=== PATIENT | male | born 1935 | race Asian ===

== ENCOUNTER 2018-01-22 10:34 | Inpatient (IN) | payer MEDICARE, OTHER ==
[~2018-01-22] VITALS: Ht 170.2 cm; Wt 72.8 kg
--- NOTE | 2018-01-22 10:37 | Emergency Room Report ---
History of Present Illness General Source: Family Member, EMS Present Illness HPI Patient is a 82-year-old male who presented after increased altered mental status. The patient was noted to have had a syncopal episode The patient was noted to have prior history dementia as well as diabetes. He was noted to have a blood sugar of 109 by EMS. The patient is brought in for further evaluation. Patient noted to have been incontinent of urine and stool.Syncopal episode occurred 1 day prior to arrival. Allergies: Coded Allergies: No Known Allergies (Unverified , 01/22/18) Patient History Past Medical History: see triage record, dementia Reviewed Nursing Documentation: PMH: Agreed; PSxH: Agreed Review of Systems All Other Systems: limited - poor historian Physical Exam General Appearance: alert, other - GCS 14, Chronically Ill Eyes: bilateral eye PERRL ENT: dry mucus membranes Neck: limited range of motion Respiratory: chest non-tender, lungs clear, normal breath sounds, no rhonchi, no retraction Cardiovascular #1: normal inspection, normal peripheral pulses, regular rate, rhythm, no edema Gastrointestinal: normal inspection, normal bowel sounds, non tender, soft, no mass Musculoskeletal: normal inspection, back normal, digits/nails normal Neurologic: alert, 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 Differential diagnosis included but was not limited to ischemic stroke, subarachnoid hemorrhage, hypoglycemia, spinal cord injury, neurodegenerative disorder, urinary tract infection, hypoxemia.Because of complexity of patient's case laboratory testing and imaging studies were ordered.Laboratory studies were notable for evidence of urinary tract infection. The patient started on IV antibiotics. The patient was given antiemetic medications. The CPK was noted to be elevated consistent with rhabdomyolysis. The patient was started on IV fluids. Dr. Lopes TRACTOR CRANE ENGINEER was contacted for inpatient management. Labs Test 01/22/18 10:56 01/22/18 11:00 White Blood Count 9.7 K/UL (4.8-10.8) Red Blood Count 4.57 M/UL (4.70-6.10) Hemoglobin 14.3 G/DL (14.2-18.0) Hematocrit 41.8 % (42.0-52.0) Mean Corpuscular Volume 91 FL (80-99) Mean Corpuscular Hemoglobin 31.3 PG (27.0-31.0) Mean Corpuscular Hemoglobin Concent 34.2 G/DL (32.0-36.0) Red Cell Distribution Width 11.5 % (11.6-14.8) Platelet Count 146 K/UL (150-450) Mean Platelet Volume 6.9 FL (6.5-10.1) Neutrophils (%) (Auto) 79.2 % (45.0-75.0) Lymphocytes (%) (Auto) 9.2 % (20.0-45.0) Monocytes (%) (Auto) 10.3 % (1.0-10.0) Eosinophils (%) (Auto) 0.3 % (0.0-3.0) Basophils (%) (Auto) 1.0 % (0.0-2.0) Prothrombin Time 10.7 SEC (9.30-11.50) Prothromb Time International Ratio 1.0 (0.9-1.1) Activated Partial Thromboplast Time 29 SEC (23-33) Sodium Level 134 MMOL/L (136-145) Potassium Level 4.0 MMOL/L (3.5-5.1) Chloride Level 101 MMOL/L (98-107) Carbon Dioxide Level 23 MMOL/L (21-32) Anion Gap 10 mmol/L (5-15) Blood Urea Nitrogen 21 mg/dL (7-18) Creatinine 1.1 MG/DL (0.55-1.30) Estimat Glomerular Filtration Rate mL/min (>60) Glucose Level 92 MG/DL (74-106) Lactic Acid Level 1.10 mmol/L (0.4-2.0) Calcium Level 9.2 MG/DL (8.5-10.1) Phosphorus Level 3.0 MG/DL (2.5-4.9) Magnesium Level 2.0 MG/DL (1.8-2.4) Total Bilirubin 1.6 MG/DL (0.2-1.0) Direct Bilirubin 0.4 MG/DL (0.0-0.3) Aspartate Amino Transf (AST/SGOT) 90 U/L (15-37) Alanine Aminotransferase (ALT/SGPT) 32 U/L (12-78) Alkaline Phosphatase 56 U/L (46-116) Total Creatine Kinase 1850 U/L (26-308) Creatine Kinase MB 17.8 NG/ML (0.0-3.6) Creatine Kinase MB Relative Index 0.9 Troponin I 0.118 ng/mL (0.000-0.056) Total Protein 8.1 G/DL (6.4-8.2) Albumin 3.4 G/DL (3.4-5.0) Globulin 4.7 g/dL Albumin/Globulin Ratio 0.7 (1.0-2.7) Lipase 71 U/L (73-393) Urine Color Yellow Urine Appearance Clear Urine pH 6 (4.5-8.0) Urine Specific [place] 1.015 (1.005-1.035) Urine Protein 2+ (NEGATIVE) Urine Glucose (UA) Negative (NEGATIVE) Urine Ketones 2+ (NEGATIVE) Urine Occult Blood 4+ (NEGATIVE) Urine Nitrite Positive (NEGATIVE) Urine Bilirubin Negative (NEGATIVE) Urine Urobilinogen 4 MG/DL (0.0-1.0) Urine Leukocyte Esterase 3+ (NEGATIVE) Urine RBC 2-4 /HPF (0 - 0) Urine WBC 30-40 /HPF (0 - 0) Urine Squamous Epithelial Cells Occasional /LPF Urine Bacteria Moderate /HPF (NONE) EKG Diagnostic Results Rate: normal Rhythm: NSR ST Segments: no acute changes Rhythm Strip Diag. Results EP Interpretation: yes Rhythm: NSR, no PVC's, no ectopy Chest X-Ray Diagnostic Results Chest X-Ray Diagnostic Results : Chest X-Ray Ordered: Yes # of Views/Limited/Complete: 1 View Indication: Shortness of Breath EP Interpretation: Yes Impression: No acute disease Electronically Signed by: Electronically signed by Dr. Brian Durand M.D. Status: unchanged Disposition: ADMITTED INPATIENT Condition: Serious Scripts Cyanocobalamin (Vitamin B-12) (Vitamin B12) 5,000 Mcg Tab.rapdis 5000 MCG PO DAILY for 30 Days, #30 TAB Prov: Ana Maria Man NP 01/25/18 Spironolactone (ALDACTONE) 25 Mg Tablet 25 MG ORAL DAILY for 30 Days, #30 TAB Prov: Ana Maria Man TRACTOR CRANE ENGINEER 18 Magnesium Hydroxide (Milk of Magnesia) 400 Mg/5 Ml Oral.susp 30 ML ORAL HSPRN PRN for 30 Days, #120 ML Prov: Ana Maria Man TRACTOR CRANE ENGINEER 01/25/18 Lisinopril (LISINOPRIL*) 5 Mg Tablet 2.5 MG ORAL DAILY for 30 Days, #30 TAB Prov: Ana Maria Man NP 01/25/18 Folic Acid* (FOLIC ACID*) 1 Mg Tablet 1 MG ORAL DAILY for 30 Days, #30 TAB Prov: Ana Maria Man NP 01/25/18 Furosemide* (LASIX*) 40 Mg Tablet 40 MG ORAL DAILY for 30 Days, #30 TAB Prov: Ana Maria Man NP 01/25/18 Docusate Sodium* (COLACE*) 100 Mg Capsule 100 MG ORAL EVERY 12 HOURS for 30 Days, #60 CAP Prov: Ana Maria Man NP 01/25/18 Ciprofloxacin Hcl* (CIPROFLOXACIN HCL*) 500 Mg Tablet 500 MG ORAL EVERY 12 HOURS for 5 Days, #10 TAB Prov: Ana Maria Man NP 01/25/18 Carvedilol (Coreg) 3.125 Mg Tablet 3.125 MG ORAL EVERY 12 HOURS for 30 Days, #60 TAB Prov: Ana Maria Man TRACTOR CRANE ENGINEER 01/25/18 Aspirin Ec* (ASPIRIN EC*) 81 Mg Tablet. 81 MG ORAL DAILY for 30 Days, #30 TAB Prov: Ana Maria Man TRACTOR CRANE ENGINEER 01/25/18 Brian Durand MD Jan 22, 2018 10:37
[2018-01-22 11:02] VITALS: BP 136/85
[2018-01-22 11:15] LABS: APPEARANCE,URINE CLEAR; BILIRUBIN, URINE NEGATIVE (NEGATIVE); GLUCOSE, URINE (UA) NEGATIVE (NEGATIVE); KETONES,URINE 2+ (NEGATIVE); LEUKOCYTE ESTERASE ,URINE 3+ (NEGATIVE); NITRITE,URINE POSITIVE (NEGATIVE); PH,URINE 6 (4.5-8.0); PROTEIN,URINE 2+ (NEGATIVE); UROBILINOGEN,URINE 4 MG/DL (0.0-1.0)
[2018-01-22 11:17] LABS: EOSINOPHILS % (AUTO) 0.3 % (0.0-3.0); HEMATOCRIT 41.8 % (42.0-52.0); HEMOGLOBIN 14.3 G/DL (14.2-18.0); LYMPHOCYTES % (AUTO) 9.2 % (20.0-45.0); MEAN CORPUSCULAR VOLUME 91 FL (80-99); MONOCYTES % (AUTO) 10.3 % (1.0-10.0); NEUTROPHILS % (AUTO) 79.2 % (45.0-75.0); PLATELET COUNT 146 K/UL (150-450); RED BLOOD COUNT 4.57 M/UL (4.70-6.10); RED CELL DISTRIBUTION WIDTH 11.5 % (11.6-14.8); WHITE BLOOD COUNT 9.7 K/UL (4.8-10.8)
[2018-01-22 11:26] LABS: COLOR,URINE YELLOW
--- NOTE | 2018-01-22 11:26 | Diagnostic Imaging Report ---
INDICATION: Altered mental status TECHNIQUE: Multiple, contiguous 2.5 mm axial cuts of the brain are obtained from the posterior fossa to the cranial vault. Sagittal and coronal reformatted images provided. No IV contrast is administered. One or more of the following dose reduction techniques were used: automated exposure control, adjustment of the mA and/or kV according to patient size, use of iterative reconstruction technique. COMPARISON: None FINDINGS: No intracranial hemorrhage, abnormal intra- or extra-axial collections or parenchymal lesions are seen. There are involutional changes with prominence of the sulci, basal cisterns and ventricles. Scattered white matter hypoattenuations are present, likely from small vessel disease. The graham-white differentiation is preserved. No evidence of mass effect, midline shift, or edema. The osseous structures are unremarkable. The visualized portions of the paranasal sinuses are clear. Atherosclerotic vascular disease. Status post bilateral lens surgery. IMPRESSION: 1. No acute intracranial process. 2. Involutional changes with small vessel disease. CTDI: 70.38 mGy DLP: 1491.99 mGycm
[2018-01-22 11:28] LABS: ANION GAP 10 mmol/L (5-15); BLOOD UREA NITROGEN 21 mg/dL (7-18); CALCIUM 9.2 MG/DL (8.5-10.1); CARBON DIOXIDE 23 MMOL/L (21-32); CHLORIDE 101 MMOL/L (98-107); CREATININE 1.1 MG/DL (0.55-1.30); SODIUM 134 MMOL/L (136-145)
[2018-01-22 11:43] LABS: ALANINE AMINOTRANSFERASE 32 U/L (12-78); ALBUMIN 3.4 G/DL (3.4-5.0); ALBUMIN/GLOBULIN RATIO 0.7 (1.0-2.7); ALKALINE PHOSPHATASE 56 U/L (46-116); ASPARTATE AMINO TRANSFERASE 90 U/L (15-37); BILIRUBIN,TOTAL 1.6 MG/DL (0.2-1.0); CKMB 17.8 NG/ML (0.0-3.6); CREATINE KINASE 1850 U/L (26-308)
[2018-01-22 11:44] LABS: BILIRUBIN,DIRECT 0.4 MG/DL (0.0-0.3)
[2018-01-22] MEDS ORDERED: cefTRIAXone 1 GM in NS 55 ML IVPB ONE (11:45)
--- NOTE | 2018-01-22 11:49 | Diagnostic Imaging Report ---
INDICATION: Syncope COMPARISON: None FINDINGS: Single frontal view demonstrates an enlarged heart size. Atherosclerotic vascular disease. The lungs are clear. No pleural effusions. Old posterior inferior left rib fractures. The visualized osseous structures are within normal limits. IMPRESSION: Cardiomegaly. No pleural effusion.
[2018-01-22] MEDS ORDERED: UNOBMED (12:17)
[2018-01-22 13:46] VITALS: BP 134/87
--- NOTE | 2018-01-22 15:07 | History and Physical ---
History of Present Illness General Date patient seen: Jan 22, 2018 Time patient seen: 15:07 Reason for Hospitalization: Altered Level of Consciousness Present Illness HPI 82 y/o male with dementia, urinary/bowel incontinence presented to the ED for syncope and AMS. Patient is a difficult historian and further history was obtained from chart/family. Patient had a syncopal episode 1 day prior to arrival and today presented with altered mental status. CT brain was done, which was unremarkable for acute pathology but did show prominence of ventricles. Patient was also noted to have a UTI and was started on rocephin. Patient had been complaining of abdominal/back pain and CT a/p was done, which was significant for some fluid distended proximal small bowel loops measuring up to 3.5 cm diameter, query ileus versus low-grade SBO. Difficult to clearly identify transition. 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 Enlarged prostate. At this time, patient denies any abdominal pain, n/v. Is unable to tell when he last had a bowel movement. Reports generalized weakness and gait instability that started within the last day. Reports urinary and bowel incontinence but unable to report when this started. Patient's CK was slightly elevated but denies any muscle pain. Troponin was also slightly elevated. EKG shows sinus rhythm with 1st degree AV block, with no acute ST or T wave changes. Denies cp, sob, f/c. Allergies: Coded Allergies: No Known Allergies (Unverified , 01/22/18) Medication History Miscellaneous Medications Unable to Obtain Medications (Unable To Obtain Meds), (Reported) Patient History Limited by: language barrier, medical condition History Provided By: Patient, Family Member, Medical Record Healthcare decision maker Resuscitation status Advanced Directive on File Review of Systems All Other Systems: negative except mentioned in HPI Physical Exam General Appearance: no apparent distress, alert Lines, tubes and drains: peripheral, central line HEENT: normocephalic, atraumatic Neck: non-tender, normal alignment, supple Respiratory/Chest: chest wall non-tender, lungs clear, normal breath sounds Cardiovascular/Chest: normal peripheral pulses, normal rate, regular rhythm Abdomen: normal bowel sounds, non tender, soft Extremities: normal range of motion, non-tender, normal inspection Skin Exam: normal pigmentation, warm/dry Neurologic: manager inventory II-XII grossly normal, no motor/sensory deficits, abnormal gait , alert, oriented x 3, motor weakness Last 24 Hour Vital Signs Date Time Temp Pulse Resp B/P (MAP) Pulse Ox O2 Delivery O2 Flow Rate FiO2 01/22/18 14:26 98.2 92 20 134/87 96 Room Air 98.2 01/22/18 13:46 98.2 92 20 134/87 96 Room Air 98.2 01/22/18 13:18 98.2 01/22/18 11:02 98.2 88 16 136/85 95 Room Air 98.2 01/22/18 10:33 98.3 94 16 136/85 95 Room Air 98.2 Laboratory Tests Test 01/22/18 10:56 01/22/18 11:00 White Blood Count 9.7 K/UL (4.8-10.8) Red Blood Count 4.57 M/UL (4.70-6.10) L Hemoglobin 14.3 G/DL (14.2-18.0) Hematocrit 41.8 % (42.0-52.0) L Mean Corpuscular Volume 91 FL (80-99) Mean Corpuscular Hemoglobin 31.3 PG (27.0-31.0) H Mean Corpuscular Hemoglobin Concent 34.2 G/DL (32.0-36.0) Red Cell Distribution Width 11.5 % (11.6-14.8) L Platelet Count 146 K/UL (150-450) L Mean Platelet Volume 6.9 FL (6.5-10.1) Neutrophils (%) (Auto) 79.2 % (45.0-75.0) H Lymphocytes (%) (Auto) 9.2 % (20.0-45.0) L Monocytes (%) (Auto) 10.3 % (1.0-10.0) H Eosinophils (%) (Auto) 0.3 % (0.0-3.0) Basophils (%) (Auto) 1.0 % (0.0-2.0) Prothrombin Time 10.7 SEC (9.30-11.50) Prothromb Time International Ratio 1.0 (0.9-1.1) Activated Partial Thromboplast Time 29 SEC (23-33) Sodium Level 134 MMOL/L (136-145) L Potassium Level 4.0 MMOL/L (3.5-5.1) Chloride Level 101 MMOL/L (98-107) Carbon Dioxide Level 23 MMOL/L (21-32) Anion Gap 10 mmol/L (5-15) Blood Urea Nitrogen 21 mg/dL (7-18) H Creatinine 1.1 MG/DL (0.55-1.30) Estimat Glomerular Filtration Rate mL/min (>60) Glucose Level 92 MG/DL (74-106) Lactic Acid Level 1.10 mmol/L (0.4-2.0) Calcium Level 9.2 MG/DL (8.5-10.1) Phosphorus Level 3.0 MG/DL (2.5-4.9) Magnesium Level 2.0 MG/DL (1.8-2.4) Total Bilirubin 1.6 MG/DL (0.2-1.0) H Direct Bilirubin 0.4 MG/DL (0.0-0.3) H Aspartate Amino Transf (AST/SGOT) 90 U/L (15-37) H Alanine Aminotransferase (ALT/SGPT) 32 U/L (12-78) Alkaline Phosphatase 56 U/L (46-116) Total Creatine Kinase 1850 U/L (26-308) H Creatine Kinase MB 17.8 NG/ML (0.0-3.6) H Creatine Kinase MB Relative Index 0.9 Troponin I 0.118 ng/mL (0.000-0.056) Total Protein 8.1 G/DL (6.4-8.2) Albumin 3.4 G/DL (3.4-5.0) Globulin 4.7 g/dL Albumin/Globulin Ratio 0.7 (1.0-2.7) L Lipase 71 U/L (73-393) L Urine Color Yellow Urine Appearance Clear Urine pH 6 (4.5-8.0) Urine Specific [place] 1.015 (1.005-1.035) Urine Protein 2+ (NEGATIVE) H Urine Glucose (UA) Negative (NEGATIVE) Urine Ketones 2+ (NEGATIVE) H Urine Occult Blood 4+ (NEGATIVE) H Urine Nitrite Positive (NEGATIVE) H Urine Bilirubin Negative (NEGATIVE) Urine Urobilinogen 4 MG/DL (0.0-1.0) H Urine Leukocyte Esterase 3+ (NEGATIVE) H Urine RBC 2-4 /HPF (0 - 0) H Urine WBC 30-40 /HPF (0 - 0) H Urine Squamous Epithelial Cells Occasional /LPF Urine Bacteria Moderate /HPF (NONE) H Height (Feet): 5 Height (Inches): 7.00 Weight (Pounds): 170 Medications Current Medications Medications (Trade) Dose Ordered Sig/Viki Route PRN Reason Start Time Stop Time Status Last Admin Dose Admin Sodium Chloride 1,000 ml @ 125 mls/hr Q8H IV 01/22/18 12:30 02/21/18 12:29 01/22/18 12:31 Assessment/Plan Problem List: (1) Ileus ICD Codes: K56.7 - Ileus, unspecified SNOMED: 274576770 (2) UTI (urinary tract infection) ICD Codes: N39.0 - Urinary tract infection, site not specified SNOMED: 45164197 (3) Dementia ICD Codes: F03.90 - Unspecified dementia without behavioral disturbance SNOMED: 19217227 (4) Syncope ICD Codes: R55 - Syncope and collapse SNOMED: 867004161 (5) Elevated troponin ICD Codes: R74.8 - Abnormal levels of other serum enzymes SNOMED: 884624294, 024914168, 293528379 (6) Rhabdomyolysis ICD Codes: M62.82 - Rhabdomyolysis SNOMED: 482677594 Status: stable, progressing Assessment/Plan - Admit to inpatient - Commercial Baking Teacher consulted - Neurologist consulted for r/o NPH given urinary incontinence, gait instability , dementia, and prominent ventricles seen on CT head - CT head with no acute pathology - check orthostatics - f/u ECHO - trend trops x 3 - IV ceftriaxone for UTI. f/u urine cx - IVF - CLD - CT a/p reviewed showing dilated small bowel loops ? ileus vs. low-grade SBO - check STAT KUB to r/o SBO - trend CK - reconcile home meds once known from family - pain control and supportive care DVT Prophylaxis: HSQ Code Status: Full Hospital Classification Declaration: Based on this initial evaluation, and depending on the patient's clinical course, I anticipate that this patient will require hospitalization for 2-3 days for syncope and close respiratory/ hemodynamic monitoring. Disposition: Once the patient is stable to leave the hospital, I anticipate the patient will likely be discharged to the following environment: home with vs SNF I spent 71 minutes on this patient's case, and 38 minutes were dedicated to counseling and/or care coordination. Discussed with patient/family, nursing staff, SW/CM, interface developer, neurologist, regarding clinical status, treatment course, and disposition planning. Time of note may not reflect time of encounter. Ana Maria Man NP Jan 22, 2018 15:07
[2018-01-22] MEDS ORDERED: Milk of Magnesia 30ml Ud ORAL PRN (15:30)
[2018-01-22] MEDS: Heparin 5000 units/ml inj SUBQ SCH (21:03)
[2018-01-22] MEDS: Docusate 100mg cap ORAL SCH (21:03)
[2018-01-23 07:07] LABS: BASOPHILS % (AUTO) 0.9 % (0.0-2.0); EOSINOPHILS % (AUTO) 1.5 % (0.0-3.0); HEMOGLOBIN 12.8 G/DL (14.2-18.0); LYMPHOCYTES % (AUTO) 16.9 % (20.0-45.0); MEAN CORPUSCULAR VOLUME 92 FL (80-99); MONOCYTES % (AUTO) 12.4 % (1.0-10.0); NEUTROPHILS % (AUTO) 68.3 % (45.0-75.0); PLATELET COUNT 139 K/UL (150-450); RED BLOOD COUNT 4.15 M/UL (4.70-6.10); RED CELL DISTRIBUTION WIDTH 11.6 % (11.6-14.8); WHITE BLOOD COUNT 7.8 K/UL (4.8-10.8)
[2018-01-23 07:50] LABS: ANION GAP 8 mmol/L (5-15); BLOOD UREA NITROGEN 18 mg/dL (7-18); CALCIUM 8.2 MG/DL (8.5-10.1); CARBON DIOXIDE 24 MMOL/L (21-32); CHLORIDE 105 MMOL/L (98-107); CHOLESTEROL 98 MG/DL (< 200); CREATININE 0.9 MG/DL (0.55-1.30); HDL CHOLESTEROL 54 MG/DL (40-60); POTASSIUM 3.5 MMOL/L (3.5-5.1); SODIUM 137 MMOL/L (136-145); TRIGLYCERIDES 56 MG/DL (30-150)
[2018-01-23 08:00] VITALS: BP 136/89
[2018-01-23 08:23] LABS: CREATINE KINASE 808 U/L (26-308)
--- NOTE | 2018-01-23 08:36 | Diagnostic Imaging Report ---
Indication: Abdominal pain Technique: Spiral acquisitions obtained through the abdomen and pelvis. No oral contrast utilized, per emergency room physician request No IV contrast utilized, per referring physician request.. Multiplanar reconstructions were generated. Total dose length product 734.85 mGycm. CTDIvol(s) 12.77 mGy. Dose reduction achieved using automated exposure control Comparison: None Findings: The appendix is not definitely identified, but there are no findings to suggest acute appendicitis. No evidence of diverticulosis or diverticulitis. There are some mildly dilated small bowel loops, some with small bowel feces, no definite transition point. No free or loculated intraperitoneal air or fluid. The distal esophagus, stomach, duodenum are unremarkable. The abdominal aorta and proximal iliac vessels are mildly ectatic but not frankly aneurysmal, the former measuring up to 26 mm in diameter. Lack of IV contrast limits assessment of the solid organs. The liver, gallbladder, bile ducts, pancreas, spleen, adrenals are unremarkable. The kidneys contain multiple cysts. No pelvic mass or adenopathy. The prostate is mildly enlarged. No retroperitoneal or mesenteric mass or adenopathy. The included lung bases demonstrate posterior dependent atelectatic changes. There is trace bilateral pleural fluid. Heart is enlarged. There is a small pericardial effusion. The bones demonstrate degenerative spondylosis changes. There is bilateral L5 spondylolysis without associated spondylolisthesis. There is a questionable mild superior endplate compression fracture deformity of the L2 vertebral body, age indeterminate although suspect old. Impression: Mildly distended small bowel loops without definite transition point. 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 This agrees with the preliminary interpretation provided overnight by [facility] teleradiology service. The CT scanner at [facility] is accredited by the [employer] and the scans are performed using protocols designed to limit radiation exposure to as low as reasonably achievable to attain images of sufficient resolution adequate for diagnostic evaluation.
[2018-01-23] MEDS: Docusate 100mg cap ORAL SCH ×2 (08:45→21:00)
[2018-01-23] MEDS: Heparin 5000 units/ml inj SUBQ SCH ×2 (08:48→20:59)
[2018-01-23] MEDS: cefTRIAXone 1 GM in D5W 110 ML IVPB SCH (11:56)
--- NOTE | 2018-01-23 11:56 | Diagnostic Imaging Report ---
Indication: Abdominal pain Technique: Supine view of the abdomen Comparison: CT scan 6 hours earlier Findings: Again demonstrated is considerable gas within upper limits of upper limits of normal caliber colon, prominent and borderline dilated small bowel. Pattern and distribution of gas appears similar to the pattern data operator image from the prior CT scan. Impression: Prominent colon, borderline dilated prominent small bowel loops, similar to 6 hours earlier. Probably on the basis of ileus, although early or partial small bowel obstruction also is a possibility This agrees with the preliminary interpretation provided overnight by [facility] teleradiology service.
[2018-01-23 12:00] VITALS: BP 144/89
--- NOTE | 2018-01-23 14:17 | Cardiac Electrophysiology PN ---
Subjective Subjective [id number] Objective Last 24 Hour Vital Signs Date Time Temp Pulse Resp B/P (MAP) Pulse Ox O2 Delivery O2 Flow Rate FiO2 01/23/18 08:00 97.6 87 20 136/89 97 Room Air 97.6 01/23/18 08:00 90 01/23/18 03:46 80 01/22/18 23:46 88 01/22/18 22:00 98 102 114 01/22/18 19:02 89 01/22/18 17:37 100 93 101 01/22/18 16:00 95 01/22/18 14:26 98.2 92 20 134/87 96 Room Air 98.2 Intake and Output 01/22/18 01/23/18 19:00 07:00 Intake Total 365 ml 1319 ml Balance 365 ml 1319 ml Intake Oral 240 ml 240 ml IV Total 125 ml 1079 ml # Voids 3 3 # Bowel Movements 1 Laboratory Tests Test 01/22/18 17:59 01/23/18 05:35 Troponin I 0.078 ng/mL (0.000-0.056) 0.075 ng/mL (0.000-0.056) White Blood Count 7.8 K/UL (4.8-10.8) Red Blood Count 4.15 M/UL (4.70-6.10) L Hemoglobin 12.8 G/DL (14.2-18.0) L Hematocrit 38.0 % (42.0-52.0) L Mean Corpuscular Volume 92 FL (80-99) Mean Corpuscular Hemoglobin 30.9 PG (27.0-31.0) Mean Corpuscular Hemoglobin Concent 33.7 G/DL (32.0-36.0) Red Cell Distribution Width 11.6 % (11.6-14.8) Platelet Count 139 K/UL (150-450) L Mean Platelet Volume 8.6 FL (6.5-10.1) Neutrophils (%) (Auto) 68.3 % (45.0-75.0) Lymphocytes (%) (Auto) 16.9 % (20.0-45.0) L Monocytes (%) (Auto) 12.4 % (1.0-10.0) H Eosinophils (%) (Auto) 1.5 % (0.0-3.0) Basophils (%) (Auto) 0.9 % (0.0-2.0) Sodium Level 137 MMOL/L (136-145) Potassium Level 3.5 MMOL/L (3.5-5.1) Chloride Level 105 MMOL/L (98-107) Carbon Dioxide Level 24 MMOL/L (21-32) Anion Gap 8 mmol/L (5-15) Blood Urea Nitrogen 18 mg/dL (7-18) Creatinine 0.9 MG/DL (0.55-1.30) Estimat Glomerular Filtration Rate mL/min (>60) Glucose Level 81 MG/DL (74-106) Hemoglobin A1c 6.5 % (4.3-6.0) H Calcium Level 8.2 MG/DL (8.5-10.1) L Total Creatine Kinase 808 U/L (26-308) H Triglycerides Level 56 MG/DL (30-150) Cholesterol Level 98 MG/DL (< 200) LDL Cholesterol 40 mg/dL (<100) HDL Cholesterol 54 MG/DL (40-60) Cholesterol/HDL Ratio 1.8 (3.3-4.4) L Thyroid Stimulating Hormone (TSH) 0.241 uiU/mL (0.358-3.740) Microbiology Date/Time Source Procedure Growth Status 01/22/18 11:00 Urine,Clean Catch Urine Culture - Preliminary Gram Negative Bacillus 1 Resulted David Rosario MD Jan 23, 2018 14:16
--- NOTE | 2018-01-23 14:37 | General Progress Note ---
Assessment/Plan Problem List: (1) Ileus ICD Codes: K56.7 - Ileus, unspecified SNOMED: 378602159 (2) UTI (urinary tract infection) ICD Codes: N39.0 - Urinary tract infection, site not specified SNOMED: 58286342 (3) Dementia ICD Codes: F03.90 - Unspecified dementia without behavioral disturbance SNOMED: 10548341 (4) Syncope ICD Codes: R55 - Syncope and collapse SNOMED: 702998935 (5) Elevated troponin ICD Codes: R74.8 - Abnormal levels of other serum enzymes SNOMED: 831300743, 357297157, 804842198 (6) Rhabdomyolysis ICD Codes: M62.82 - Rhabdomyolysis SNOMED: 635075313 Status: stable, progressing Assessment/Plan - GI consulted for ileus vs. early/partial SBO - Field Laboratory Operator consulted, appreciate rec's - Neurologist consulted for r/o NPH given urinary incontinence, gait instability , dementia, and prominent ventricles seen on CT head - CT head with no acute pathology - check orthostatics - ECHO with 30-35% EF - trops downtrending 0.11 --> 0.07 --> 0.07 - IV ceftriaxone for UTI. f/u urine cx -- GNB - IVF - CLD - CT a/p reviewed showing dilated small bowel loops ? ileus vs. low-grade SBO - STAT KUB also showed similar findings to CT - f/u small bowel series - trend CK 1800 --> 808 - reconcile home meds once known from family --> UNABLE TO CONTACT FAMILY TO OBTAIN HOME MEDS OR HX. location worker consulted. - A1c 6.5. start SSi - TSH 0.24. Check TSH, free and total T3/T4 - pain control and supportive care DVT Prophylaxis: HSQ Code Status: Full Hospital Classification Declaration: Based on this initial evaluation, and depending on the patient's clinical course, I anticipate that this patient will require hospitalization for 2-3 days for syncope, ileus, and close respiratory/ hemodynamic monitoring. Disposition: Once the patient is stable to leave the hospital, I anticipate the patient will likely be discharged to the following environment: home with HH vs SNF I spent 31 minutes on this patient's case, and 18 minutes were dedicated to counseling and/or care coordination. Discussed with patient/family, nursing staff, SW/CM, transportation economics teacher, neurologist, GI, regarding clinical status, treatment course, and disposition planning. Time of note may not reflect time of encounter. Subjective Date patient seen: Jan 23, 2018 Time patient seen: 14:28 Allergies: Coded Allergies: No Known Allergies (Unverified , 01/22/18) Subjective - KUB shows questionable ileus versus early or partial SBO - denies abdominal pain, n/v - attempted to reach family, but no one was picking up. patient remains confused but likely at baseline from dementia - AF, HDS - trops downtrending Objective Last 24 Hour Vital Signs Date Time Temp Pulse Resp B/P (MAP) Pulse Ox O2 Delivery O2 Flow Rate FiO2 01/23/18 12:00 83 01/23/18 08:00 97.6 87 20 136/89 97 Room Air 97.6 01/23/18 08:00 90 01/23/18 03:46 80 01/22/18 23:46 88 01/22/18 22:00 98 102 114 01/22/18 19:02 89 01/22/18 17:37 100 93 101 01/22/18 16:00 95 Intake and Output 01/22/18 01/23/18 19:00 07:00 Intake Total 365 ml 1319 ml Balance 365 ml 1319 ml Intake Oral 240 ml 240 ml IV Total 125 ml 1079 ml # Voids 3 3 # Bowel Movements 1 Laboratory Tests 01/22/18 17:59: Troponin I 0.078H 01/23/18 05:35: Troponin I 0.075H, White Blood Count 7.8, Red Blood Count 4.15L, Hemoglobin 12.8L, Hematocrit 38.0L, Mean Corpuscular Volume 92, Mean Corpuscular Hemoglobin 30.9, Mean Corpuscular Hemoglobin Concent 33.7, Red Cell Distribution Width 11.6, Platelet Count 139L, Mean Platelet Volume 8.6, Neutrophils (%) (Auto) 68.3, Lymphocytes (%) (Auto) 16.9L, Monocytes (%) (Auto) 12.4H, Eosinophils (%) (Auto) 1.5, Basophils (%) (Auto) 0.9, Sodium Level 137, Potassium Level 3.5, Chloride Level 105, Carbon Dioxide Level 24, Anion Gap 8, Blood Urea Nitrogen 18, Creatinine 0.9, Estimat Glomerular Filtration Rate , Glucose Level 81, Hemoglobin A1c 6.5H, Calcium Level 8.2L, Total Creatine Kinase 808H, Triglycerides Level 56, Cholesterol Level 98, LDL Cholesterol 40, HDL Cholesterol 54, Cholesterol/HDL Ratio 1.8L, Thyroid Stimulating Hormone (TSH ) 0.241L Height (Feet): 5 Height (Inches): 7.00 Weight (Pounds): 165 General Appearance: no apparent distress, alert EENT: PERRL/EOMI, normal ENT inspection Neck: non-tender, normal alignment Cardiovascular: normal peripheral pulses, normal rate, regular rhythm Respiratory/Chest: chest wall non-tender, lungs clear, normal breath sounds Abdomen: non tender, soft, hypoactive bowel sounds Extremities: normal range of motion, non-tender Neurologic: manager environmental health II-XII grossly normal, no motor/sensory deficits, alert Skin: normal pigmentation, warm/dry Ana Maria Man NP Jan 23, 2018 14:37
[2018-01-23] MEDS: Sodium Chloride 500ML 550 ML IV SCH (14:59)
--- NOTE | 2018-01-23 15:57 | GI Initial Consult Note ---
History of Present Illness General Date patient seen: Jan 23, 2018 Time patient seen: 15:48 Reason for Hospitalization: Altered Level of Consciousness Referring physician: UYEN ESCUDERO Reason for Consultation: SBO Present Illness HPI 82 y/o male with dementia, urinary/bowel incontinence presented to the ED for syncope and AMS. Patient is a difficult historian and further history was obtained from chart/family. Patient had a syncopal episode 1 day prior to arrival and today presented with altered mental status. CT brain was done, which was unremarkable for acute pathology but did show prominence of ventricles. Patient was also noted to have a UTI and was started on rocephin. Patient had been complaining of abdominal/back pain and CT a/p was done, which was significant for some fluid distended proximal small bowel loops measuring up to 3.5 cm diameter, query ileus versus low-grade SBO. Difficult to clearly identify transition. 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 Enlarged prostate. At this time, patient denies any abdominal pain, n/v. Is unable to tell when he last had a bowel movement. Reports generalized weakness and gait instability that started within the last day. Reports urinary and bowel incontinence but unable to report when this started. Patient's CK was slightly elevated but denies any muscle pain. Troponin was also slightly elevated. EKG shows sinus rhythm with 1st degree AV block, with no acute ST or T wave changes. Denies cp, sob, f/c. GI consulted for possible SBO vs ileus as seen on recent CT. ROS limited, patient a poor historian with history of dementia. Denies any abdominal pain, soft non tender, non distended. States he has been constipated, last BM approximately 4-5 days. Positive for flatus. CT AP reviewed, with follow up nursing home director image still revealed dilated small bowel loops. Patient presents today with mild anemia, elevated AST and hyperbilirubinemia, and low TSH. Unknown history of endoscopy / colonoscopy. Home Meds Reported Medications Unable to Obtain Medications (UNABLE TO OBTAIN MEDS) 1 Ea Ea 01/22/18 Med list reviewed/reconciled: Yes Allergies: Coded Allergies: No Known Allergies (Unverified , 01/22/18) Patient History Limited by: medical condition History Provided By: Medical Record PMH Narrative Miscellaneous Medications Unable to Obtain Medications (Unable To Obtain Meds), (Reported) Patient History Limited by: language barrier, medical condition History Provided By: Patient, Family Member, Medical Record Healthcare decision maker Social History: Denies: smoking, alcohol use, drug use, other Review of Systems All Other Systems: negative except mentioned in HPI Physical Exam Vital Signs Date Time Temp Pulse Resp B/P (MAP) Pulse Ox O2 Delivery O2 Flow Rate FiO2 01/22/18 10:33 98.3 94 16 136/85 95 Room Air 98.2 Sp02 EP Interpretation: reviewed, normal Labs Laboratory Tests Test 01/22/18 17:59 01/23/18 05:35 Troponin I 0.078 ng/mL (0.000-0.056) 0.075 ng/mL (0.000-0.056) White Blood Count 7.8 K/UL (4.8-10.8) Red Blood Count 4.15 M/UL (4.70-6.10) L Hemoglobin 12.8 G/DL (14.2-18.0) L Hematocrit 38.0 % (42.0-52.0) L Mean Corpuscular Volume 92 FL (80-99) Mean Corpuscular Hemoglobin 30.9 PG (27.0-31.0) Mean Corpuscular Hemoglobin Concent 33.7 G/DL (32.0-36.0) Red Cell Distribution Width 11.6 % (11.6-14.8) Platelet Count 139 K/UL (150-450) L Mean Platelet Volume 8.6 FL (6.5-10.1) Neutrophils (%) (Auto) 68.3 % (45.0-75.0) Lymphocytes (%) (Auto) 16.9 % (20.0-45.0) L Monocytes (%) (Auto) 12.4 % (1.0-10.0) H Eosinophils (%) (Auto) 1.5 % (0.0-3.0) Basophils (%) (Auto) 0.9 % (0.0-2.0) Sodium Level 137 MMOL/L (136-145) Potassium Level 3.5 MMOL/L (3.5-5.1) Chloride Level 105 MMOL/L (98-107) Carbon Dioxide Level 24 MMOL/L (21-32) Anion Gap 8 mmol/L (5-15) Blood Urea Nitrogen 18 mg/dL (7-18) Creatinine 0.9 MG/DL (0.55-1.30) Estimat Glomerular Filtration Rate mL/min (>60) Glucose Level 81 MG/DL (74-106) Hemoglobin A1c 6.5 % (4.3-6.0) H Calcium Level 8.2 MG/DL (8.5-10.1) L Total Creatine Kinase 808 U/L (26-308) H Triglycerides Level 56 MG/DL (30-150) Cholesterol Level 98 MG/DL (< 200) LDL Cholesterol 40 mg/dL (<100) HDL Cholesterol 54 MG/DL (40-60) Cholesterol/HDL Ratio 1.8 (3.3-4.4) L Thyroid Stimulating Hormone (TSH) 0.241 uiU/mL (0.358-3.740) General Appearance: well appearing, no apparent distress, alert Head: normocephalic EENT: PERRL/EOMI, normal ENT inspection Neck: supple Respiratory: normal breath sounds, no respiratory distress Cardiovascular: normal rate Gastrointestinal: normal inspection, non tender, soft, normal bowel sounds, non -distended Rectal: deferred Genitourinary: deferred Musculoskeletal: normal inspection, back normal Neurologic: alert, oriented x3, responsive Psychiatric: other - dementia Skin: normal inspection, normal color, no rash, warm/dry, palpation normal, well hydrated Lymphatic: normal inspection, no adenopathy Current Medications Current Medications Medications (Trade) Dose Ordered Sig/Viki Route PRN Reason Start Time Stop Time Status Last Admin Dose Admin Acetaminophen (Tylenol) 650 mg Q4H PRN ORAL Mild Pain (Pain Scale 1-3) 01/22/18 15:30 02/21/18 15:29 Aspirin (Ecotrin) 81 mg DAILY ORAL 01/24/18 09:00 02/23/18 08:59 Bisacodyl (Dulcolax) 10 mg DAILYPRN PRN RECTAL Constipation 01/22/18 15:30 02/21/18 15:29 Ceftriaxone Sodium 1 gm/ Dextrose 110 ml @ 220 mls/hr Q24H IVPB 01/23/18 12:00 01/30/18 11:59 01/23/18 11:56 Dextrose (Dextrose 50%) 25 ml STAT PRN IV Hypoglycemia 01/22/18 15:30 02/21/18 15:29 Dextrose (Dextrose 50%) 25 ml STAT PRN IV Hypoglycemia 01/23/18 14:45 02/22/18 14:44 Dextrose (Dextrose 50%) 50 ml STAT PRN IV Hypoglycemia 01/22/18 15:30 02/21/18 15:29 Dextrose (Dextrose 50%) 50 ml STAT PRN IV Hypoglycemia 01/23/18 14:45 02/22/18 14:44 Docusate Sodium (Colace) 100 mg EVERY 12 HOURS ORAL 01/22/18 21:00 02/21/18 20:59 01/23/18 08:45 Furosemide (Lasix) 40 mg DAILY ORAL 01/24/18 09:00 02/23/18 08:59 Heparin Sodium (Porcine) (Heparin 5000 units/ml) 5,000 units EVERY 12 HOURS SUBQ 01/22/18 21:00 02/21/18 20:59 01/23/18 08:48 Insulin Aspart (NovoLOG) BEFORE MEALS AND HS SUBQ 01/23/18 16:30 02/22/18 16:29 Lisinopril (Zestril) 2.5 mg DAILY ORAL 01/24/18 09:00 02/23/18 08:59 Magnesium Hydroxide (Mom) 30 ml HSPRN PRN ORAL Constipation 01/22/18 15:30 02/21/18 15:29 Ondansetron HCl (Zofran) 4 mg Q6H PRN IVP Nausea & Vomiting 01/22/18 15:30 02/21/18 15:29 Sodium Chloride 550 ml @ 50 mls/hr Q11H IV 01/23/18 14:45 02/22/18 14:44 01/23/18 14:59 Spironolactone (Aldactone) 25 mg DAILY ORAL 01/24/18 09:00 02/23/18 08:59 GI: Plan Problems: (1) LFTs abnormal (2) Generalized weakness (3) SBO (small bowel obstruction) (4) Ileus (5) Elevated troponin (6) Dementia Plan CT AP reviewed, see full report >> ileus vs early SBO possible gastroparesis 2/2 to DM normochromic normocytic anemia elevated AST >> avoid hepatotoxic medications ordered small bowel xray series serial imaging prn maintain CLD until r/o SBO. IV/PO hydration + electrolyte correction defer NGT for bowel decompression at this time DM management trend LFTs anemia work up OB stool r/o GI bleed monitor H&H, prn transfusions ppi fu labs, Free T4 given low TSH levels Discussed with Dr. Noriega. Thank you for this patient referral, we will follow. The patient was seen and examined at bedside and all new and available data was reviewed in the patients chart. I agree with the above findings, impression and plan. (Patient seen earlier today. Signature stamp does not reflect patient encounter time.). - MD Elaina HendersonHavasu Regional Medical CenterKayla IMPORT DISPATCHER Jan 23, 2018 15:57
[2018-01-23 16:00] VITALS: BP 117/64
[2018-01-23] MEDS: NovoLOG Insulin Flexpen SUBQ SCH ×2 (16:21→21:00)
[2018-01-23 20:00] VITALS: BP 137/80
--- NOTE | 2018-01-23 21:03 | Consultation ---
Consult Note Consult Note NEUROLOGY CONSULTATION: Full note dictated #[id number] 82 y/o, RH, KM with PH of HTN, DM, Dementia, Incontinence of bowel and bladder, and Syncope. He was hospitalized on 01/22/18 for AMS associated with a UTI. The CT of the brain revealed "prominent ventricles" and thus this consult was requested to evaluate the patient for NPH. Mr. Elkins was unable to give me any further Hx. ON EXAM: Oriented to self only. Problems with memory/VSF/HCF No definite focal dysfunction on CN or motor exam. Global areflexia Refused to sit, stand or walk. IMPRESSION: Dementia with possible superimposed encephalopathy. Global hyporeflexia. CT with cortical and subcortical atrophy leading to commensurate ventricular dilatation - picture not classic of NPH. REC: Rx of acute infection. Mobilize with PT Labs for treatable causes of dementia. Observe. Nik Petty M.D., M.S.P.NIK NEGRETE Jan 23, 2018 21:03
--- NOTE | 2018-01-23 22:00 | Consultation ---
DATE OF CONSULTATION: 01/23/2018 NEUROLOGY CONSULTATION CONSULTING PHYSICIAN: Arslan Petty M.D. REQUESTING PHYSICIAN: Jhony Hernandez M.D. HISTORY: Mr. Gibran Elkins is an 82-year-old, right-handed, [place] gentleman, who does have a past history of hypertension, diabetes mellitus, dementia, incontinence of bowel and bladder and recent syncopal episodes. He was hospitalized on 01/22/2018 for an altered mental state. This was associated with a urinary tract infection. On being evaluated in the emergency room, a CT scan of the brain was done and revealed "prominent ventricles". Thus this consultation was requested to evaluate the patient for possible normal pressure hydrocephalus. The patient himself was unable to give me any further history. He was unable to tell me about his health. He was unable to tell me if he has been forgetful and for how long he has been forgetful and thus further information could not be obtained. PAST MEDICAL HISTORY: Significant for hypertension, diabetes mellitus, dementia, incontinence of bowel and bladder and syncope. FAMILY HISTORY: Unavailable. PERSONAL HISTORY: Home: He tells me that he lives with family. Work: He was unable to remember what kind of work he did. Habits: He denies use of alcohol, tobacco, or illicit drugs at this point in time. MEDICATIONS: Present medications include lisinopril, spironolactone, furosemide, aspirin, insulin, ceftriaxone, docusate sodium, heparin for DVT prophylaxis, Tylenol p.r.n., Dulcolax p.r.n., milk of magnesia p.r.n. and Zofran p.r.n. PHYSICAL EXAMINATION: GENERAL: He is a well-developed, well-nourished [place] gentleman, lying in bed, in no acute distress. VITAL SIGNS: Pulse 80/minute, blood pressure 117/64 mmHg, respirations 19/minute, temperature 98.7 degrees Fahrenheit. HEAD: Normocephalic and atraumatic. EENT: Examination benign. NECK: No neck rigidity was observed. NEUROLOGIC EXAMINATION: MENTAL STATUS EXAMINATION: He was awake and alert. He was oriented to self only. He had no idea where he was or what the date was. He was able to recall 3/3 words immediately, but could not remember any of them in 1 minute and 3 minutes. He was unable to tell me who the present President was and who prior presidents were. His mathematical skills were impaired. His visuospatial function was also impaired. SPEECH: He had no dysarthria. LANGUAGE: Could not be tested adequately. CRANIAL NERVE EXAMINATION: II: The visual ren were intact on confrontation testing. III, IV & : External ocular movements were full and the pupils 3 mm in diameter, equal, round, regular, and reactive to light. V: He had normal facial sensations and the temporales, masseters, and pterygoids functioned normally. VII: He had normal facial expressions and no facial asymmetry. VIII: He was able to hear well bilaterally and had no nystagmus. IX: The palate moved symmetrically on phonation. X: He had no hoarseness of voice. XI: The sternocleidomastoids and trapezii functioned normally. XII: The tongue was in the midline without any fasciculations or atrophy. MOTOR SYSTEM: The tone was normal in all four extremities. Examination of muscle mass revealed no focal wasting. Examination of power revealed grade 5/5 power in all muscle groups tested. SENSORY EXAMINATION: He had intact sensations to pinprick and light touch. He was unable to cooperate for the sensory modalities. REFLEXES: Zero at the biceps, triceps, brachioradialis, knees, and ankles. The plantar responses were flexor bilaterally. STANCE & GAIT: Could not be tested because he refused to sit, stand or walk. DIAGNOSTIC IMPRESSION: 1. Mr. Gibran Elkins is an 82-year-old, right-handed, [place] gentleman, with past history of hypertension, diabetes mellitus, dementia, bowel and bladder incontinence, and syncope who was hospitalized for an altered mental state associated with a urinary tract infection. On being evaluated, a CT scan of the brain revealed "prominent ventricles" and thus this consultation was requested to evaluate the patient for normal pressure hydrocephalus. 2. On neurological examination at this time, he is cognitively impoverished and has significant cognitive dysfunction. He is oriented to self only and has problems with recent and remote memory, visuospatial function, and higher cognitive function. He, however, does not demonstrate any focal or lateralizing neurological findings on either cranial nerve or motor examination. His deep tendon reflexes are absent and he refused sit, stand or walk. 3. Laboratory data obtained thus far revealed that he is mildly anemic with a hemoglobin of 12.8. His hemoglobin A1c is elevated to 6.5%. His CK is elevated to 808 and his TSH is low at 0.24. 4. The CT scan of the brain without contrast reveals both cortical and subcortical atrophy with commensurate ventricular dilatation, which is a picture not classic of normal pressure hydrocephalus. 5. The patient's history, neurological examination, and laboratory data obtained thus far are consistent with a primary degenerative dementia with possibly a superimposed encephalopathy related to his acute urinary tract infection. RECOMMENDATIONS: 1. Agree with management thus far. 2. Agree with aggressive treatment of the patient's urinary tract infection. 3. The patient should be worked up for other treatable causes of dementia with a B12 level, folate level, vitamin D level, RPR, sedimentation rate and serum ammonia. 4. He should be mobilized with the help of physical therapy. 5. The patient will be observed closely and depending on how he fares over the next day or so, further recommendations will be given. Thank you for entrusting me with the care of Mr. Elkins. I shall follow him with you. Arslan Petty M.D., M.S.P.H. DR: ARMANDO JOB#: [id number] MTDD
--- NOTE | 2018-01-23 23:32 | Consultation ---
History of Present Illness General Date patient seen: Jan 23, 2018 Chief Complaint: Altered Level of Consciousness Referring physician: UYEN ESCUDERO Reason for Consultation: SBO Present Illness HPI 82-year-old, Polish man, who does have a past history of hypertension, diabetes mellitus, dementia, incontinence of bowel and bladder. The pt pw waxing and waning of consciousness. The pt was was more alert. The pt has anxiety episodes. Allergies: Coded Allergies: No Known Allergies (Unverified , 01/22/18) Medication History Miscellaneous Medications Unable to Obtain Medications (Unable To Obtain Meds), (Reported) Patient History Limited by: medical condition History Provided By: Patient, Medical Record, PMD Healthcare decision maker Resuscitation status Advanced Directive on File Past Medical/Surgical History Past Medical/Surgical History: (1) Dementia (2) Ileus (3) Syncope (4) UTI (urinary tract infection) (5) Elevated troponin (6) Rhabdomyolysis (7) Generalized weakness (8) SBO (small bowel obstruction) (9) LFTs abnormal Review of Systems Psychiatric: Reports: prior hx, anxiety, depressed feelings, emotional problems Physical Exam General Appearance: no apparent distress, alert Neurologic: responsive, depressed affect Last 24 Hour Vital Signs Date Time Temp Pulse Resp B/P (MAP) Pulse Ox O2 Delivery O2 Flow Rate FiO2 01/23/18 20:00 97.7 74 17 137/80 95 Room Air 97.7 01/23/18 19:54 77 01/23/18 16:00 98.7 66 19 117/64 97 Room Air 98.7 01/23/18 16:00 80 01/23/18 14:58 107 144/89 01/23/18 13:00 91 109 113 01/23/18 12:00 98.3 107 21 144/89 97 Room Air 98.3 01/23/18 12:00 83 01/23/18 08:00 97.6 87 20 136/89 97 Room Air 97.6 01/23/18 08:00 90 01/23/18 03:46 80 01/22/18 23:46 88 Intake and Output 01/22/18 01/23/18 19:00 07:00 Intake Total 365 ml 1319 ml Balance 365 ml 1319 ml Intake Oral 240 ml 240 ml IV Total 125 ml 1079 ml # Voids 3 3 # Bowel Movements 1 Laboratory Tests Test 01/23/18 05:35 White Blood Count 7.8 K/UL (4.8-10.8) Red Blood Count 4.15 M/UL (4.70-6.10) L Hemoglobin 12.8 G/DL (14.2-18.0) L Hematocrit 38.0 % (42.0-52.0) L Mean Corpuscular Volume 92 FL (80-99) Mean Corpuscular Hemoglobin 30.9 PG (27.0-31.0) Mean Corpuscular Hemoglobin Concent 33.7 G/DL (32.0-36.0) Red Cell Distribution Width 11.6 % (11.6-14.8) Platelet Count 139 K/UL (150-450) L Mean Platelet Volume 8.6 FL (6.5-10.1) Neutrophils (%) (Auto) 68.3 % (45.0-75.0) Lymphocytes (%) (Auto) 16.9 % (20.0-45.0) L Monocytes (%) (Auto) 12.4 % (1.0-10.0) H Eosinophils (%) (Auto) 1.5 % (0.0-3.0) Basophils (%) (Auto) 0.9 % (0.0-2.0) Erythrocyte Sedimentation Rate 6 MM/HR (0-20) Sodium Level 137 MMOL/L (136-145) Potassium Level 3.5 MMOL/L (3.5-5.1) Chloride Level 105 MMOL/L (98-107) Carbon Dioxide Level 24 MMOL/L (21-32) Anion Gap 8 mmol/L (5-15) Blood Urea Nitrogen 18 mg/dL (7-18) Creatinine 0.9 MG/DL (0.55-1.30) Estimat Glomerular Filtration Rate mL/min (>60) Glucose Level 81 MG/DL (74-106) Hemoglobin A1c 6.5 % (4.3-6.0) H Calcium Level 8.2 MG/DL (8.5-10.1) L Total Creatine Kinase 808 U/L (26-308) H Troponin I 0.075 ng/mL (0.000-0.056) Triglycerides Level 56 MG/DL (30-150) Cholesterol Level 98 MG/DL (< 200) LDL Cholesterol 40 mg/dL (<100) HDL Cholesterol 54 MG/DL (40-60) Cholesterol/HDL Ratio 1.8 (3.3-4.4) L Vitamin D 25-Hydroxy Pending 25-Hydroxy Vitamin D2 Pending 25-Hydroxy Vitamin D3 Pending Thyroid Stimulating Hormone (TSH) 0.241 uiU/mL (0.358-3.740) Rapid Plasma Reagin Pending Height (Feet): 5 Height (Inches): 7.00 Weight (Pounds): 165 Medications Current Medications Medications (Trade) Dose Ordered Sig/Viki Route PRN Reason Start Time Stop Time Status Last Admin Dose Admin Acetaminophen (Tylenol) 650 mg Q4H PRN ORAL Mild Pain (Pain Scale 1-3) 01/22/18 15:30 02/21/18 15:29 Aspirin (Ecotrin) 81 mg DAILY ORAL 01/24/18 09:00 02/23/18 08:59 Bisacodyl (Dulcolax) 10 mg DAILYPRN PRN RECTAL Constipation 01/22/18 15:30 02/21/18 15:29 Ceftriaxone Sodium 1 gm/ Dextrose 110 ml @ 220 mls/hr Q24H IVPB 01/23/18 12:00 01/30/18 11:59 01/23/18 11:56 Dextrose (Dextrose 50%) 25 ml STAT PRN IV Hypoglycemia 01/23/18 14:45 02/22/18 14:44 Dextrose (Dextrose 50%) 50 ml STAT PRN IV Hypoglycemia 01/23/18 14:45 02/22/18 14:44 Docusate Sodium (Colace) 100 mg EVERY 12 HOURS ORAL 01/22/18 21:00 02/21/18 20:59 01/23/18 08:45 Furosemide (Lasix) 40 mg DAILY ORAL 01/24/18 09:00 02/23/18 08:59 Heparin Sodium (Porcine) (Heparin 5000 units/ml) 5,000 units EVERY 12 HOURS SUBQ 01/22/18 21:00 02/21/18 20:59 01/23/18 20:59 Insulin Aspart (NovoLOG) BEFORE MEALS AND HS SUBQ 01/23/18 16:30 02/22/18 16:29 01/23/18 16:21 Lisinopril (Zestril) 2.5 mg DAILY ORAL 01/24/18 09:00 02/23/18 08:59 Magnesium Hydroxide (Mom) 30 ml HSPRN PRN ORAL Constipation 01/22/18 15:30 02/21/18 15:29 Ondansetron HCl (Zofran) 4 mg Q6H PRN IVP Nausea & Vomiting 01/22/18 15:30 02/21/18 15:29 Sodium Chloride 550 ml @ 50 mls/hr Q11H IV 01/23/18 14:45 02/22/18 14:44 01/23/18 14:59 Spironolactone (Aldactone) 25 mg DAILY ORAL 01/24/18 09:00 02/23/18 08:59 Assessment/Plan Assessment/Plan dementia anxiety d/o -Ativan prn Jensen Silva M.D. Jan 23, 2018 23:32
[2018-01-24] VITALS: BP 137/82
--- NOTE | 2018-01-24 01:00 | Consultation ---
DATE OF CONSULTATION: 01/23/2018 NOTE: POOR AUDIO CARDIOLOGY CONSULTATION CONSULTING PHYSICIAN: David Rosario M.D. REFERRING PHYSICIAN: Jhony Hernandez M.D. REASON FOR CONSULTATION: Elevated troponin and cardiomyopathy, EF of 30% to 35% and syncope. HISTORY OF PRESENT ILLNESS: The patient is an 82-year-old gentleman with history of hypertension, dementia, and urinary incontinence, who was brought to the emergency room for syncope and altered mental status. The patient had a CT of the brain was done, which was unremarkable. The patient noted also to have urinary tract infection and was started on Rocephin. His echocardiogram ejection fraction of 30% to 35% only. His EKG also showed right bundle-branch block and left anterior fascicular block. His troponin was also slightly elevated. At the time of my evaluation, the patient denies any chest pain or palpitation, but he states . PAST MEDICAL HISTORY: As mentioned above. FAMILY HISTORY: Noncontributory. REVIEW OF SYSTEMS: Review of systems was negative other than what was mentioned in the history of present illness. PHYSICAL EXAMINATION: VITAL SIGNS: Blood pressure of 136/89, pulse 87, respirations 18, and temperature 97.6 degrees. HEAD AND NECK: Shows no JVD. LUNGS: Coarse rhonchi. CARDIOVASCULAR: Regular S1 and S2 with no gallop or murmur. ABDOMEN: Soft. EXTREMITIES: No pitting edema. LABORATORY AND DIAGNOSTIC DATA: His labs show a white count 7.8, hemoglobin 12.8, hematocrit 38, and platelet count of 139. Sodium 137, potassium 3.5, BUN of 18, creatinine 0.9, and glucose of 81. Troponin 0.078 and 0.075. CK is 808. ASSESSMENT AND PLAN: 1. Elevated troponin, levels are flat, could be secondary to the patient's rhabdomyolysis. CK was more than 800. The patient does not have any chest pain. 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 is cleared, we will check orthostatic vital signs. 2. Cardiomyopathy, ejection fraction of 30% to 35%. The patient would need ischemic evaluation to rule out coronary artery disease and ischemic cardiomyopathy. In the meantime, I will start the patient on Coreg, lisinopril, and Aldactone. 3. Urinary tract infection, on ceftriaxone. 4. Dementia. 5. Altered level of consciousness. Thank you very much, Dr. Hernandez, for allowing me to participate in the care of this patient. Please do not hesitate to contact me if you have any questions regarding my evaluation. David Rosario M.D. DR: SAKSHI JOB#: [id number] CC:
[2018-01-24] MEDS: Sodium Chloride 500ML 550 ML IV SCH ×3 (02:22→23:47)
[2018-01-24] MEDS: LORazepam 0.5mg tab ORAL PRN ×2 (02:50→09:49)
[2018-01-24] MEDS: NovoLOG Insulin Flexpen SUBQ SCH ×4 (06:30→21:35)
[2018-01-24 08:00] VITALS: BP 127/84
[2018-01-24 08:18] LABS: EOSINOPHILS % (AUTO) 1.8 % (0.0-3.0); HEMATOCRIT 38.3 % (42.0-52.0); HEMOGLOBIN 13.3 G/DL (14.2-18.0); LYMPHOCYTES % (AUTO) 22.5 % (20.0-45.0); MEAN CORPUSCULAR VOLUME 90 FL (80-99); MONOCYTES % (AUTO) 12.6 % (1.0-10.0); PLATELET COUNT 143 K/UL (150-450); RED BLOOD COUNT 4.25 M/UL (4.70-6.10); RED CELL DISTRIBUTION WIDTH 11.5 % (11.6-14.8); WHITE BLOOD COUNT 7.9 K/UL (4.8-10.8)
[2018-01-24] MEDS: Spironolactone 25mg tab ORAL SCH (09:02)
[2018-01-24] MEDS: Furosemide 40mg tab ORAL SCH (09:02)
[2018-01-24] MEDS: Lisinopril 2.5mg tab ORAL SCH (09:02)
[2018-01-24] MEDS: Docusate 100mg cap ORAL SCH ×2 (09:02→21:36)
[2018-01-24] MEDS: Aspirin EC 81mg tab ORAL SCH (09:02)
[2018-01-24] MEDS: Heparin 5000 units/ml inj SUBQ SCH ×2 (09:04→21:36)
[2018-01-24 09:13] LABS: IRON 47 ug/dL (50-175); TOTAL IRON BINDING CAPACITY 165 ug/dL (250-450)
[2018-01-24 09:14] LABS: % IRON SATURATION 28 % (15-50)
[2018-01-24 09:17] LABS: AMMONIA 20 umol/L (11-32)
[2018-01-24 09:26] LABS: ALANINE AMINOTRANSFERASE 34 U/L (12-78); ALBUMIN 2.7 G/DL (3.4-5.0); ALBUMIN/GLOBULIN RATIO 0.7 (1.0-2.7); ALKALINE PHOSPHATASE 50 U/L (46-116); ANION GAP 9 mmol/L (5-15); ASPARTATE AMINO TRANSFERASE 44 U/L (15-37); BLOOD UREA NITROGEN 14 mg/dL (7-18); CALCIUM 8.4 MG/DL (8.5-10.1); CARBON DIOXIDE 26 MMOL/L (21-32); CHLORIDE 105 MMOL/L (98-107); POTASSIUM 3.6 MMOL/L (3.5-5.1); SODIUM 140 MMOL/L (136-145)
[2018-01-24] MEDS: cefTRIAXone 1 GM in D5W 110 ML IVPB SCH (11:56)
[2018-01-24 12:00] VITALS: BP 139/77
--- NOTE | 2018-01-24 13:27 | General Progress Note ---
Assessment/Plan Problem List: (1) Ileus ICD Codes: K56.7 - Ileus, unspecified SNOMED: 588809659 (2) UTI (urinary tract infection) ICD Codes: N39.0 - Urinary tract infection, site not specified SNOMED: 67959995 (3) Dementia ICD Codes: F03.90 - Unspecified dementia without behavioral disturbance SNOMED: 03192453 (4) Syncope ICD Codes: R55 - Syncope and collapse SNOMED: 145423810 (5) Elevated troponin ICD Codes: R74.8 - Abnormal levels of other serum enzymes SNOMED: 540621347, 901810691, 735955427 (6) Rhabdomyolysis ICD Codes: M62.82 - Rhabdomyolysis SNOMED: 920292388 Status: stable, progressing Assessment/Plan - GI consulted for ileus vs. early/partial SBO, appreciate rec's - General surgery consulted - Artist Consultant consulted, appreciate rec's - Neurologist consulted for r/o NPH given urinary incontinence, gait instability , dementia, and prominent ventricles seen on CT head --> NPH ruled out per neurology. appreciate rec's - CT head with no acute pathology but with prominent ventricles - check orthostatics - ECHO with 30-35% EF - trops downtrending 0.11 --> 0.07 --> 0.07 -- likely elevated 2/2 elevated CK - ciprofloxacin 500mg BID for UTI, sensitive to urine culture/pseudomonas aeroginosa. (D1/5) - IVF - CLD - CT a/p reviewed showing dilated small bowel loops ? ileus vs. low-grade SBO - STAT KUB also showed similar findings to CT - f/u small bowel series -- patient unable to tolerate. will check STAT KUB today - defer NGT at this time - trend CK 1800 --> 808 - check RPR, vitamin B12, folate, vitamin D to r/o metabolic etiology for acute encephalopathy. TSH initially elevated and now wnl. - reconcile home meds once known from family --> UNABLE TO CONTACT FAMILY TO OBTAIN HOME MEDS OR HX. 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 - A1c 6.5. start SSi - TSH 0.24. Repeat TSH wnl but low fT3. F/u as outpatient - pain control and supportive care DVT Prophylaxis: HSQ Code Status: Full Hospital Classification Declaration: Based on this initial evaluation, and depending on the patient's clinical course, I anticipate that this patient will require hospitalization for 2-3 days for syncope, ileus, and close respiratory/ hemodynamic monitoring. Disposition: Once the patient is stable to leave the hospital, I anticipate the patient will likely be discharged to the following environment: home with vs SNF I spent 31 minutes on this patient's case, and 18 minutes were dedicated to counseling and/or care coordination. Discussed with patient/family, nursing staff, SW/CM, citrus fruit colorer, neurologist, GI, regarding clinical status, treatment course, and disposition planning. Time of note may not reflect time of encounter. Subjective Date patient seen: Jan 24, 2018 Time patient seen: 13:21 Allergies: Coded Allergies: No Known Allergies (Unverified , 01/22/18) Subjective - unable to tolerate contrast for small bowel series - f/u STAT KUB today - denies abdominal pain, n/v. reports no bowel movement for 5 days. denies flatus - attempted to reach family, but no one was picking up - AF, HDS - no cp, sob Objective Last 24 Hour Vital Signs Date Time Temp Pulse Resp B/P (MAP) Pulse Ox O2 Delivery O2 Flow Rate FiO2 01/24/18 09:02 127/84 01/24/18 09:00 74 85 105 01/24/18 08:00 98.4 85 20 127/84 96 Room Air 98.4 01/24/18 03:34 68 01/24/18 00:00 98.4 71 18 137/82 95 Room Air 98.4 01/24/18 00:00 71 80 88 01/23/18 23:34 72 01/23/18 20:00 97.7 74 17 137/80 95 Room Air 97.7 01/23/18 19:54 77 01/23/18 16:00 98.7 66 19 117/64 97 Room Air 98.7 01/23/18 16:00 80 01/23/18 14:58 107 144/89 Intake and Output 01/23/18 01/24/18 19:00 07:00 Intake Total 960 ml Balance 960 ml Intake Oral 960 ml IV Total 0 ml # Voids 4 2 # Bowel Movements 1 1 Laboratory Tests 01/24/18 07:25: White Blood Count 7.9, Red Blood Count 4.25L, Hemoglobin 13.3L, Hematocrit 38.3L , Mean Corpuscular Volume 90, Mean Corpuscular Hemoglobin 31.3H, Mean Corpuscular Hemoglobin Concent 34.7, Red Cell Distribution Width 11.5L, Platelet Count 143L, Mean Platelet Volume 7.4, Neutrophils (%) (Auto) 62.0, Lymphocytes (%) (Auto) 22.5, Monocytes (%) (Auto) 12.6H, Eosinophils (%) (Auto) 1.8, Basophils (%) (Auto) 1.0, Reticulocyte Count 0.7, Sodium Level 140, Potassium Level 3.6, Chloride Level 105, Carbon Dioxide Level 26, Anion Gap 9, Blood Urea Nitrogen 14, Creatinine 1.0, Estimat Glomerular Filtration Rate , Glucose Level 94, Calcium Level 8.4L, Iron Level 47L, Total Iron Binding Capacity 165L, Percent Iron Saturation 28, Unsaturated Iron Binding 118, Ferritin 508H, Total Bilirubin 1.0, Aspartate Amino Transf (AST/SGOT) 44H, Alanine Aminotransferase (ALT/SGPT) 34, Alkaline Phosphatase 50, Ammonia 20, Troponin I 0.060H, Total Protein 6.7, Albumin 2.7L, Globulin 4.0, Albumin/ Globulin Ratio 0.7L, Vitamin B12 Level 276, Folate 3.7L, Thyroid Stimulating Hormone (TSH) 0.474, Free Thyroxine 1.03, Triiodothyonine (T3) [Pending], Free Triiodothyronine 1.1L Height (Feet): 5 Height (Inches): 7.00 Weight (Pounds): 165 General Appearance: no apparent distress, alert EENT: PERRL/EOMI, normal ENT inspection Neck: non-tender, normal alignment, supple Cardiovascular: normal peripheral pulses, normal rate, regular rhythm Respiratory/Chest: chest wall non-tender, lungs clear, normal breath sounds Abdomen: non tender, soft, hypoactive bowel sounds Extremities: normal range of motion, non-tender Neurologic: 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
--- NOTE | 2018-01-24 14:28 | General Progress Note ---
Assessment/Plan Assessment/Plan dementia anxiety d/o encephalopathy -Ativan prn -zyprexa 2.5mg bid Subjective Date patient seen: Jan 24, 2018 Neurologic/Psychiatric: Reports: anxiety, depressed, emotional problems Allergies: Coded Allergies: No Known Allergies (Unverified , 01/22/18) Subjective the pt has been confused and agitated. He thinks he is in a restaurant. Objective Last 24 Hour Vital Signs Date Time Temp Pulse Resp B/P (MAP) Pulse Ox O2 Delivery O2 Flow Rate FiO2 01/24/18 09:02 127/84 01/24/18 09:00 74 85 105 01/24/18 08:00 98.4 85 20 127/84 96 Room Air 98.4 01/24/18 03:34 68 01/24/18 00:00 98.4 71 18 137/82 95 Room Air 98.4 01/24/18 00:00 71 80 88 01/23/18 23:34 72 01/23/18 20:00 97.7 74 17 137/80 95 Room Air 97.7 01/23/18 19:54 77 01/23/18 16:00 98.7 66 19 117/64 97 Room Air 98.7 01/23/18 16:00 80 01/23/18 14:58 107 144/89 Intake and Output 01/23/18 01/24/18 19:00 07:00 Intake Total 960 ml Balance 960 ml Intake Oral 960 ml IV Total 0 ml # Voids 4 2 # Bowel Movements 1 1 Laboratory Tests 01/24/18 07:25: White Blood Count 7.9, Red Blood Count 4.25L, Hemoglobin 13.3L, Hematocrit 38.3L , Mean Corpuscular Volume 90, Mean Corpuscular Hemoglobin 31.3H, Mean Corpuscular Hemoglobin Concent 34.7, Red Cell Distribution Width 11.5L, Platelet Count 143L, Mean Platelet Volume 7.4, Neutrophils (%) (Auto) 62.0, Lymphocytes (%) (Auto) 22.5, Monocytes (%) (Auto) 12.6H, Eosinophils (%) (Auto) 1.8, Basophils (%) (Auto) 1.0, Reticulocyte Count 0.7, Sodium Level 140, Potassium Level 3.6, Chloride Level 105, Carbon Dioxide Level 26, Anion Gap 9, Blood Urea Nitrogen 14, Creatinine 1.0, Estimat Glomerular Filtration Rate , Glucose Level 94, Calcium Level 8.4L, Iron Level 47L, Total Iron Binding Capacity 165L, Percent Iron Saturation 28, Unsaturated Iron Binding 118, Ferritin 508H, Total Bilirubin 1.0, Aspartate Amino Transf (AST/SGOT) 44H, Alanine Aminotransferase (ALT/SGPT) 34, Alkaline Phosphatase 50, Ammonia 20, Troponin I 0.060H, Total Protein 6.7, Albumin 2.7L, Globulin 4.0, Albumin/ Globulin Ratio 0.7L, Vitamin B12 Level 276, Folate 3.7L, Thyroid Stimulating Hormone (TSH) 0.474, Free Thyroxine 1.03, Triiodothyonine (T3) [Pending], Free Triiodothyronine 1.1L Height (Feet): 5 Height (Inches): 7.00 Weight (Pounds): 165 General Appearance: WD/WN, alert, confused, agitated Jensen Silva M.D. Jan 24, 2018 14:28
--- NOTE | 2018-01-24 14:43 | Diagnostic Imaging Report ---
Indication: Abdominal pain Technique: Supine view of the abdomen Comparison: 01/22/2018 Findings: Gas-filled upper limits of normal caliber colon, dilated gas-filled small bowel loops are again demonstrated. Findings are overall unchanged. No unusual masses or calcifications. Degenerative spondylosis changes are again noted Impression: Unchanged nonspecific dilated small bowel and upper limits normal caliber colon, over 5 days. As previously discussed, main differential considerations are ileus versus small bowel obstruction
[2018-01-24] MEDS ORDERED: Tubing IV Secondary IV ONE (14:47)
[2018-01-24] MEDS ORDERED: NS 500ML ONE (14:47)
--- NOTE | 2018-01-24 15:18 | Cardiac Electrophysiology PN ---
Assessment/Plan Assessment/Plan 1. Elevated troponin, levels are flat, could be secondary to the patient's rhabdomyolysis. CK was more than 800. The patient does not have any chest pain. 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 2. Cardiomyopathy, EF of 30% to 35%. The patient would need ischemic evaluation to rule out coronary artery disease and ischemic cardiomyopathy. Continue Coreg lisinopril,Lasix and Aldactone. 3. Urinary tract infection, on ceftriaxone. 4. Dementia. 5. Altered level of consciousness. DW Dr. Petty and RN. Subjective Subjective Was agitated earlier now and got Ativan. Sleeping now in NAD.Just had KUB to R/ O SBO Objective Last 24 Hour Vital Signs Date Time Temp Pulse Resp B/P (MAP) Pulse Ox O2 Delivery O2 Flow Rate FiO2 01/24/18 09:02 127/84 01/24/18 09:00 74 85 105 01/24/18 08:00 98.4 85 20 127/84 96 Room Air 98.4 01/24/18 03:34 68 01/24/18 00:00 98.4 71 18 137/82 95 Room Air 98.4 01/24/18 00:00 71 80 88 01/23/18 23:34 72 01/23/18 20:00 97.7 74 17 137/80 95 Room Air 97.7 01/23/18 19:54 77 01/23/18 16:00 98.7 66 19 117/64 97 Room Air 98.7 01/23/18 16:00 80 Intake and Output 01/23/18 01/24/18 19:00 07:00 Intake Total 960 ml Balance 960 ml Intake Oral 960 ml IV Total 0 ml # Voids 4 2 # Bowel Movements 1 1 Laboratory Tests Test 01/24/18 07:25 White Blood Count 7.9 K/UL (4.8-10.8) Red Blood Count 4.25 M/UL (4.70-6.10) L Hemoglobin 13.3 G/DL (14.2-18.0) L Hematocrit 38.3 % (42.0-52.0) L Mean Corpuscular Volume 90 FL (80-99) Mean Corpuscular Hemoglobin 31.3 PG (27.0-31.0) H Mean Corpuscular Hemoglobin Concent 34.7 G/DL (32.0-36.0) Red Cell Distribution Width 11.5 % (11.6-14.8) L Platelet Count 143 K/UL (150-450) L Mean Platelet Volume 7.4 FL (6.5-10.1) Neutrophils (%) (Auto) 62.0 % (45.0-75.0) Lymphocytes (%) (Auto) 22.5 % (20.0-45.0) Monocytes (%) (Auto) 12.6 % (1.0-10.0) H Eosinophils (%) (Auto) 1.8 % (0.0-3.0) Basophils (%) (Auto) 1.0 % (0.0-2.0) Reticulocyte Count 0.7 % (0.0-2.0) Sodium Level 140 MMOL/L (136-145) Potassium Level 3.6 MMOL/L (3.5-5.1) Chloride Level 105 MMOL/L (98-107) Carbon Dioxide Level 26 MMOL/L (21-32) Anion Gap 9 mmol/L (5-15) Blood Urea Nitrogen 14 mg/dL (7-18) Creatinine 1.0 MG/DL (0.55-1.30) Estimat Glomerular Filtration Rate mL/min (>60) Glucose Level 94 MG/DL (74-106) Calcium Level 8.4 MG/DL (8.5-10.1) L Iron Level 47 ug/dL (50-175) L Total Iron Binding Capacity 165 ug/dL (250-450) L Percent Iron Saturation 28 % (15-50) Unsaturated Iron Binding 118 ug/dL (112-346) Ferritin 508 NG/ML (8-388) H Total Bilirubin 1.0 MG/DL (0.2-1.0) Aspartate Amino Transf (AST/SGOT) 44 U/L (15-37) H Alanine Aminotransferase (ALT/SGPT) 34 U/L (12-78) Alkaline Phosphatase 50 U/L (46-116) Ammonia 20 umol/L (11-32) Troponin I 0.060 ng/mL (0.000-0.056) Total Protein 6.7 G/DL (6.4-8.2) Albumin 2.7 G/DL (3.4-5.0) L Globulin 4.0 g/dL Albumin/Globulin Ratio 0.7 (1.0-2.7) L Vitamin B12 Level 276 PG/ML (193-986) Folate 3.7 NG/ML (8.6-58.9) L Thyroid Stimulating Hormone (TSH) 0.474 uiU/mL (0.358-3.740) Free Thyroxine 1.03 NG/DL (0.76-1.46) Triiodothyonine (T3) Pending Free Triiodothyronine 1.1 pg/mL (2.3-4.2) L Microbiology Date/Time Source Procedure Growth Status 01/22/18 10:51 Blood Blood Culture - Preliminary NO GROWTH AFTER 24 HOURS Resulted 01/22/18 10:25 Blood Blood Culture - Preliminary NO GROWTH AFTER 24 HOURS Resulted 01/22/18 13:33 Nasal Nares MRSA Culture - Final NO METHICILLIN RESISTANT STAPH AUREUS... Complete 01/22/18 11:00 Urine,Clean Catch Urine Culture - Final Pseudomonas Aeruginosa Complete 01/22/18 13:33 Rectum VRE Culture - Final Enterococcus Faecalis - Vre Complete Objective HEAD AND NECK: Shows no JVD. LUNGS: Coarse rhonchi. CARDIOVASCULAR: Regular S1 and S2 with no gallop or murmur. ABDOMEN: Soft. EXTREMITIES: No pitting edema. David Rosario MD Jan 24, 2018 15:18
--- NOTE | 2018-01-24 15:25 | Neurology Progress Note ---
Interim History Interim History Interim History Mr. Elkins feels sleepy. He was given Ativan for agitation earlier and is sedated now. He denies any new neurologic symptoms. He worked with the PT earlier. He continues to be cognitively impoverished. He continues to be unable to stand and walk. Review of Systems Neuro Review of Systems Benign. Objective Physical Exam Last Vital Signs Date Time Temp Pulse Resp B/P (MAP) Pulse Ox O2 Delivery O2 Flow Rate FiO2 01/24/18 09:02 127/84 01/24/18 09:00 74 85 105 01/24/18 08:00 98.4 20 96 Room Air 98.4 Laboratory Tests Test 01/24/18 07:25 White Blood Count 7.9 K/UL (4.8-10.8) Red Blood Count 4.25 M/UL (4.70-6.10) L Hemoglobin 13.3 G/DL (14.2-18.0) L Hematocrit 38.3 % (42.0-52.0) L Mean Corpuscular Volume 90 FL (80-99) Mean Corpuscular Hemoglobin 31.3 PG (27.0-31.0) H Mean Corpuscular Hemoglobin Concent 34.7 G/DL (32.0-36.0) Red Cell Distribution Width 11.5 % (11.6-14.8) L Platelet Count 143 K/UL (150-450) L Mean Platelet Volume 7.4 FL (6.5-10.1) Neutrophils (%) (Auto) 62.0 % (45.0-75.0) Lymphocytes (%) (Auto) 22.5 % (20.0-45.0) Monocytes (%) (Auto) 12.6 % (1.0-10.0) H Eosinophils (%) (Auto) 1.8 % (0.0-3.0) Basophils (%) (Auto) 1.0 % (0.0-2.0) Reticulocyte Count 0.7 % (0.0-2.0) Sodium Level 140 MMOL/L (136-145) Potassium Level 3.6 MMOL/L (3.5-5.1) Chloride Level 105 MMOL/L (98-107) Carbon Dioxide Level 26 MMOL/L (21-32) Anion Gap 9 mmol/L (5-15) Blood Urea Nitrogen 14 mg/dL (7-18) Creatinine 1.0 MG/DL (0.55-1.30) Estimat Glomerular Filtration Rate mL/min (>60) Glucose Level 94 MG/DL (74-106) Calcium Level 8.4 MG/DL (8.5-10.1) L Iron Level 47 ug/dL (50-175) L Total Iron Binding Capacity 165 ug/dL (250-450) L Percent Iron Saturation 28 % (15-50) Unsaturated Iron Binding 118 ug/dL (112-346) Ferritin 508 NG/ML (8-388) H Total Bilirubin 1.0 MG/DL (0.2-1.0) Aspartate Amino Transf (AST/SGOT) 44 U/L (15-37) H Alanine Aminotransferase (ALT/SGPT) 34 U/L (12-78) Alkaline Phosphatase 50 U/L (46-116) Ammonia 20 umol/L (11-32) Troponin I 0.060 ng/mL (0.000-0.056) Total Protein 6.7 G/DL (6.4-8.2) Albumin 2.7 G/DL (3.4-5.0) L Globulin 4.0 g/dL Albumin/Globulin Ratio 0.7 (1.0-2.7) L Vitamin B12 Level 276 PG/ML (193-986) Folate 3.7 NG/ML (8.6-58.9) L Thyroid Stimulating Hormone (TSH) 0.474 uiU/mL (0.358-3.740) Free Thyroxine 1.03 NG/DL (0.76-1.46) Triiodothyonine (T3) Pending Free Triiodothyronine 1.1 pg/mL (2.3-4.2) L Neurologic Exam Objective PHYSICAL EXAMINATION: GENERAL: He is a well-developed, well-nourished Urdu gentleman, lying in bed , in no acute distress. HEAD: Normocephalic and atraumatic. EENT: Examination benign. NECK: No neck rigidity was observed. NEUROLOGIC EXAMINATION: MENTAL STATUS EXAMINATION: He was drowsy but could be aroused briefly. He was oriented to self only. He was too sedated to cooperate for further mental status tests. SPEECH: He had a mild dysarthria. LANGUAGE: Could not be tested adequately. CRANIAL NERVE EXAMINATION: II: The visual ren were intact to threat. III, IV & : External ocular movements were full and the pupils 3 mm in diameter, equal, round, regular, and reactive to light. V: He had normal facial sensations and the temporales, masseters, and pterygoids functioned normally. VII: He had normal facial expressions and no facial asymmetry. VIII: He was able to hear well bilaterally and had no nystagmus. IX: The palate moved symmetrically on phonation. X: He had no hoarseness of voice. XI: The sternocleidomastoids and trapezii functioned normally. XII: The tongue was in the midline without any fasciculations or atrophy. MOTOR SYSTEM: The tone was normal in all four extremities. Examination of muscle mass revealed no focal wasting. Examination of power revealed grade 5/5 power in all muscle groups tested. SENSORY EXAMINATION: He was unable to cooperate for the sensory testing. REFLEXES: Zero at the biceps, triceps, brachioradialis, knees, and ankles. The plantar responses were flexor bilaterally. STANCE & GAIT: Could not be tested. Impression/Recommendations Diagnostic Impression 1. Mr. Gibran Elkins is an 82-year-old, right-handed, Urdu gentleman, with past history of hypertension, diabetes mellitus, dementia, bowel and bladder incontinence, and syncope who was hospitalized for an altered mental state associated with a urinary tract infection. On being evaluated, a CT scan of the brain revealed "prominent ventricles" and thus this consultation was requested to evaluate the patient for normal pressure hydrocephalus. 2. He feels sleepy. He was given Ativan for agitation earlier and is sedated now. He denies any new neurologic symptoms. He worked with the PT earlier. He continues to be cognitively impoverished. He continues to be unable to stand and walk. 3. On neurological examination, at this time, he is sedated with Ativan now. He is cognitively impoverished and has significant cognitive dysfunction. He is oriented to self only and is unable to cooperate for further mental status testing. He does not demonstrate any focal or lateralizing neurological findings on either cranial nerve or motor examination. His deep tendon reflexes are absent. He is unable to sit, stand or walk. 4. Laboratory data obtained thus far revealed that he is mildly anemic with a hemoglobin of 12.8. His hemoglobin A1c is elevated to 6.5%. His CK is elevated to 808 and his TSH is low at 0.24. His B12 level is low at 276 and Folate is low at 3.7. 5. The CT scan of the brain without contrast reveals both cortical and subcortical atrophy with commensurate ventricular dilatation, which is a picture not classic of normal pressure hydrocephalus. 6. The patient's history, neurological examination, and laboratory data obtained thus far are consistent with a primary degenerative dementia with possibly a superimposed encephalopathy related to his acute urinary tract infection. 7. He is also Vitamin B12 and folate deficient which could be contributing to his cognitive dysfunction. Recommendations 1. Continue present management. 2. Agree with aggressive treatment of the patient's urinary tract infection. 3. Refrain from use of mind altering drugs. 4. He should be mobilized with the help of physical therapy. 5. Vitamin B12 - 1000 mcg SC x 3 days and then monthly. 6. Folic acid 1 mg q day. Nik Petty M.D., M.S.P.Sanya. NIK PETTY Jan 24, 2018 15:25
[2018-01-24] MEDS ORDERED: Vitamin B12 1000mcg/ml Inj IM SCH ×2 (15:30→20:00)
--- NOTE | 2018-01-24 15:51 | GI Progress Note ---
Assessment/Plan Problems: (1) SBO (small bowel obstruction) ICD Codes: K56.609 - Unspecified intestinal obstruction, unspecified as to partial versus complete obstruction SNOMED: 012846571 (2) Generalized weakness ICD Codes: R53.1 - Weakness SNOMED: 71859009 (3) Elevated troponin ICD Codes: R74.8 - Abnormal levels of other serum enzymes SNOMED: 603667532, 744353100, 781905080 (4) Ileus ICD Codes: K56.7 - Ileus, unspecified SNOMED: 791279373 (5) Dementia ICD Codes: F03.90 - Unspecified dementia without behavioral disturbance SNOMED: 49448368 (6) LFTs abnormal ICD Codes: R94.5 - Abnormal results of liver function studies SNOMED: 763558549 Status: unchanged Status Narrative Discussed with Dr. Noriega. Assessment/Plan CT AP reviewed, see full report >> ileus vs early SBO possible gastroparesis 2/2 to DM normochromic normocytic anemia elevated AST >> avoid hepatotoxic medications anemia work up reviewed >> folate deficiency elevated troponin levels small bowel series not done today, KUB ordered which find no changes from prior imaging study maintain CLD until r/o SBO. IV/PO hydration + electrolyte correction defer NGT for bowel decompression at this time DM management trend LFTs OB stool r/o GI bleed >> no BM to date monitor H&H, prn transfusions ppi fu labs The patient was seen and examined at bedside and all new and available data was reviewed in the patients chart. I agree with the above findings, impression and plan. (Patient seen earlier today. Signature stamp does not reflect patient encounter time.). - Bart Noriega MD Subjective Subjective not passing flatus not having BM Objective Last 24 Hour Vital Signs Date Time Temp Pulse Resp B/P (MAP) Pulse Ox O2 Delivery O2 Flow Rate FiO2 01/24/18 09:02 127/84 01/24/18 09:00 74 85 105 01/24/18 08:00 98.4 85 20 127/84 96 Room Air 98.4 01/24/18 03:34 68 01/24/18 00:00 98.4 71 18 137/82 95 Room Air 98.4 01/24/18 00:00 71 80 88 01/23/18 23:34 72 01/23/18 20:00 97.7 74 17 137/80 95 Room Air 97.7 01/23/18 19:54 77 01/23/18 16:00 98.7 66 19 117/64 97 Room Air 98.7 01/23/18 16:00 80 Intake and Output 01/23/18 01/24/18 19:00 07:00 Intake Total 960 ml Balance 960 ml Intake Oral 960 ml IV Total 0 ml # Voids 4 2 # Bowel Movements 1 1 Laboratory Tests Test 01/24/18 07:25 White Blood Count 7.9 K/UL (4.8-10.8) Red Blood Count 4.25 M/UL (4.70-6.10) L Hemoglobin 13.3 G/DL (14.2-18.0) L Hematocrit 38.3 % (42.0-52.0) L Mean Corpuscular Volume 90 FL (80-99) Mean Corpuscular Hemoglobin 31.3 PG (27.0-31.0) H Mean Corpuscular Hemoglobin Concent 34.7 G/DL (32.0-36.0) Red Cell Distribution Width 11.5 % (11.6-14.8) L Platelet Count 143 K/UL (150-450) L Mean Platelet Volume 7.4 FL (6.5-10.1) Neutrophils (%) (Auto) 62.0 % (45.0-75.0) Lymphocytes (%) (Auto) 22.5 % (20.0-45.0) Monocytes (%) (Auto) 12.6 % (1.0-10.0) H Eosinophils (%) (Auto) 1.8 % (0.0-3.0) Basophils (%) (Auto) 1.0 % (0.0-2.0) Reticulocyte Count 0.7 % (0.0-2.0) Sodium Level 140 MMOL/L (136-145) Potassium Level 3.6 MMOL/L (3.5-5.1) Chloride Level 105 MMOL/L (98-107) Carbon Dioxide Level 26 MMOL/L (21-32) Anion Gap 9 mmol/L (5-15) Blood Urea Nitrogen 14 mg/dL (7-18) Creatinine 1.0 MG/DL (0.55-1.30) Estimat Glomerular Filtration Rate mL/min (>60) Glucose Level 94 MG/DL (74-106) Calcium Level 8.4 MG/DL (8.5-10.1) L Iron Level 47 ug/dL (50-175) L Total Iron Binding Capacity 165 ug/dL (250-450) L Percent Iron Saturation 28 % (15-50) Unsaturated Iron Binding 118 ug/dL (112-346) Ferritin 508 NG/ML (8-388) H Total Bilirubin 1.0 MG/DL (0.2-1.0) Aspartate Amino Transf (AST/SGOT) 44 U/L (15-37) H Alanine Aminotransferase (ALT/SGPT) 34 U/L (12-78) Alkaline Phosphatase 50 U/L (46-116) Ammonia 20 umol/L (11-32) Troponin I 0.060 ng/mL (0.000-0.056) Total Protein 6.7 G/DL (6.4-8.2) Albumin 2.7 G/DL (3.4-5.0) L Globulin 4.0 g/dL Albumin/Globulin Ratio 0.7 (1.0-2.7) L Vitamin B12 Level 276 PG/ML (193-986) Folate 3.7 NG/ML (8.6-58.9) L Thyroid Stimulating Hormone (TSH) 0.474 uiU/mL (0.358-3.740) Free Thyroxine 1.03 NG/DL (0.76-1.46) Triiodothyonine (T3) Pending Free Triiodothyronine 1.1 pg/mL (2.3-4.2) L Height (Feet): 5 Height (Inches): 7.00 Weight (Pounds): 165 General Appearance: WD/WN, no apparent distress, alert Cardiovascular: normal rate Respiratory/Chest: normal breath sounds, no respiratory distress Abdominal Exam: normal bowel sounds, non tender, soft Extremities: normal range of motion, non-tender Nicolle Delaney NP Jan 24, 2018 15:51
[2018-01-24 16:00] VITALS: BP 120/66
--- NOTE | 2018-01-24 16:17 | Consultation ---
History of Present Illness General Date patient seen: Jan 24, 2018 Chief Complaint: Altered Level of Consciousness Referring physician: UYEN ESCUDERO Reason for Consultation: SBO Present Illness HPI 82M multiple medical comorbidities presented with altered mental status. Upon admission had mild abdominal discomfort and CT A/P demonstrated possible dilated bowel without specific transition point. Patient under medical care and management and improving but without good bowel function. KUB demonstrated bowel dilation and concerns for possible sbo vs ileus. surgery called to evaluate. patient seen, chart reviewed, patient examined. Allergies: Coded Allergies: No Known Allergies (Unverified , 01/22/18) Medication History Miscellaneous Medications Unable to Obtain Medications (Unable To Obtain Meds), (Reported) Patient History History Provided By: Medical Record, PMD Healthcare decision maker Resuscitation status Advanced Directive on File Past Medical/Surgical History Past Medical/Surgical History: (1) Dementia (2) Ileus (3) Syncope (4) UTI (urinary tract infection) (5) Elevated troponin (6) Rhabdomyolysis (7) Generalized weakness (8) SBO (small bowel obstruction) (9) LFTs abnormal Review of Systems ROS Narrative cannot obtain given patients medical condition Physical Exam General Appearance: no apparent distress HEENT: atraumatic Neck: normal inspection Respiratory/Chest: lungs clear, normal breath sounds, no respiratory distress, no accessory muscle use Cardiovascular/Chest: normal rate Abdomen: normal bowel sounds, non tender, soft, no organomegaly, no mass Extremities: normal inspection Neurologic: unresponsiveness Last 24 Hour Vital Signs Date Time Temp Pulse Resp B/P (MAP) Pulse Ox O2 Delivery O2 Flow Rate FiO2 01/24/18 09:02 127/84 01/24/18 09:00 74 85 105 01/24/18 08:00 98.4 85 20 127/84 96 Room Air 98.4 01/24/18 03:34 68 01/24/18 00:00 98.4 71 18 137/82 95 Room Air 98.4 01/24/18 00:00 71 80 88 01/23/18 23:34 72 01/23/18 20:00 97.7 74 17 137/80 95 Room Air 97.7 01/23/18 19:54 77 Intake and Output 01/23/18 01/24/18 19:00 07:00 Intake Total 960 ml Balance 960 ml Intake Oral 960 ml IV Total 0 ml # Voids 4 2 # Bowel Movements 1 1 Laboratory Tests Test 01/24/18 07:25 White Blood Count 7.9 K/UL (4.8-10.8) Red Blood Count 4.25 M/UL (4.70-6.10) L Hemoglobin 13.3 G/DL (14.2-18.0) L Hematocrit 38.3 % (42.0-52.0) L Mean Corpuscular Volume 90 FL (80-99) Mean Corpuscular Hemoglobin 31.3 PG (27.0-31.0) H Mean Corpuscular Hemoglobin Concent 34.7 G/DL (32.0-36.0) Red Cell Distribution Width 11.5 % (11.6-14.8) L Platelet Count 143 K/UL (150-450) L Mean Platelet Volume 7.4 FL (6.5-10.1) Neutrophils (%) (Auto) 62.0 % (45.0-75.0) Lymphocytes (%) (Auto) 22.5 % (20.0-45.0) Monocytes (%) (Auto) 12.6 % (1.0-10.0) H Eosinophils (%) (Auto) 1.8 % (0.0-3.0) Basophils (%) (Auto) 1.0 % (0.0-2.0) Reticulocyte Count 0.7 % (0.0-2.0) Sodium Level 140 MMOL/L (136-145) Potassium Level 3.6 MMOL/L (3.5-5.1) Chloride Level 105 MMOL/L (98-107) Carbon Dioxide Level 26 MMOL/L (21-32) Anion Gap 9 mmol/L (5-15) Blood Urea Nitrogen 14 mg/dL (7-18) Creatinine 1.0 MG/DL (0.55-1.30) Estimat Glomerular Filtration Rate mL/min (>60) Glucose Level 94 MG/DL (74-106) Calcium Level 8.4 MG/DL (8.5-10.1) L Iron Level 47 ug/dL (50-175) L Total Iron Binding Capacity 165 ug/dL (250-450) L Percent Iron Saturation 28 % (15-50) Unsaturated Iron Binding 118 ug/dL (112-346) Ferritin 508 NG/ML (8-388) H Total Bilirubin 1.0 MG/DL (0.2-1.0) Aspartate Amino Transf (AST/SGOT) 44 U/L (15-37) H Alanine Aminotransferase (ALT/SGPT) 34 U/L (12-78) Alkaline Phosphatase 50 U/L (46-116) Ammonia 20 umol/L (11-32) Troponin I 0.060 ng/mL (0.000-0.056) Total Protein 6.7 G/DL (6.4-8.2) Albumin 2.7 G/DL (3.4-5.0) L Globulin 4.0 g/dL Albumin/Globulin Ratio 0.7 (1.0-2.7) L Vitamin B12 Level 276 PG/ML (193-986) Folate 3.7 NG/ML (8.6-58.9) L Thyroid Stimulating Hormone (TSH) 0.474 uiU/mL (0.358-3.740) Free Thyroxine 1.03 NG/DL (0.76-1.46) Triiodothyonine (T3) Pending Free Triiodothyronine 1.1 pg/mL (2.3-4.2) L Height (Feet): 5 Height (Inches): 7.00 Weight (Pounds): 165 Medications Current Medications Medications (Trade) Dose Ordered Sig/Viki Route PRN Reason Start Time Stop Time Status Last Admin Dose Admin Acetaminophen (Tylenol) 650 mg Q4H PRN ORAL Mild Pain (Pain Scale 1-3) 01/22/18 15:30 02/21/18 15:29 Aspirin (Ecotrin) 81 mg DAILY ORAL 01/24/18 09:00 02/23/18 08:59 01/24/18 09:02 Bisacodyl (Dulcolax) 10 mg DAILYPRN PRN RECTAL Constipation 01/22/18 15:30 02/21/18 15:29 Carvedilol (Coreg) 3.125 mg EVERY 12 HOURS ORAL 01/24/18 21:00 02/23/18 20:59 Ceftriaxone Sodium 1 gm/ Dextrose 110 ml @ 220 mls/hr Q24H IVPB 01/23/18 12:00 01/30/18 11:59 01/24/18 11:56 Cyanocobalamin (Vitamin B12) 1,000 mcg DAILY IM 01/24/18 15:30 01/26/18 09:01 Dextrose (Dextrose 50%) 25 ml STAT PRN IV Hypoglycemia 01/23/18 14:45 02/22/18 14:44 Dextrose (Dextrose 50%) 50 ml STAT PRN IV Hypoglycemia 01/23/18 14:45 02/22/18 14:44 Docusate Sodium (Colace) 100 mg EVERY 12 HOURS ORAL 01/22/18 21:00 02/21/18 20:59 01/24/18 09:02 Folic Acid (Folate) 1 mg DAILY ORAL 01/24/18 17:00 02/23/18 16:59 Folic Acid (Folate) 1 mg DAILY ORAL 01/25/18 09:00 02/24/18 08:59 UNV Furosemide (Lasix) 40 mg DAILY ORAL 01/24/18 09:00 02/23/18 08:59 01/24/18 09:02 Heparin Sodium (Porcine) (Heparin 5000 units/ml) 5,000 units EVERY 12 HOURS SUBQ 01/22/18 21:00 02/21/18 20:59 01/24/18 09:04 Insulin Aspart (NovoLOG) BEFORE MEALS AND HS SUBQ 01/23/18 16:30 02/22/18 16:29 01/24/18 11:57 Lisinopril (Zestril) 2.5 mg DAILY ORAL 01/24/18 09:00 02/23/18 08:59 01/24/18 09:02 Lorazepam (Ativan) 1 mg Q6H PRN ORAL For Anxiety 01/23/18 23:30 01/30/18 23:29 01/24/18 09:49 Magnesium Hydroxide (Mom) 30 ml HSPRN PRN ORAL Constipation 01/22/18 15:30 02/21/18 15:29 Olanzapine (ZyPREXA) 2.5 mg BID ORAL 01/24/18 14:30 02/23/18 14:29 Ondansetron HCl (Zofran) 4 mg Q6H PRN IVP Nausea & Vomiting 01/22/18 15:30 02/21/18 15:29 Sodium Chloride 550 ml @ 50 mls/hr Q11H IV 01/23/18 14:45 02/22/18 14:44 01/24/18 12:06 Spironolactone (Aldactone) 25 mg DAILY ORAL 01/24/18 09:00 02/23/18 08:59 01/24/18 09:02 Assessment/Plan Problem List: (1) Ileus Assessment & Plan: 82M with likely ileus or slow transit bowel. unlikely obstruction. HD stable, labs okay, exam benign. radiological studies reviewed and not specific obstruction noted and likely just ileus. -okay for diet from surgical standpoint. patient needs to be up and if possible in chair when tolerating diet. -enemas -will follow clinically thank you for this consult. will follow with you. ICD Codes: K56.7 - Ileus, unspecified SNOMED: 785441819 Status: stable ChloeMark Jan 24, 2018 16:17
[2018-01-24] MEDS ORDERED: Fleet's Enema 133ml RECTAL ONE (16:30)
[2018-01-24] MEDS: OLANZapine 2.5mg tab ORAL SCH ×2 (17:51→18:34)
[2018-01-24 20:00] VITALS: BP 133/79
[2018-01-25] VITALS: BP 120/65
[2018-01-25 04:00] VITALS: BP 119/68
[2018-01-25] MEDS: NovoLOG Insulin Flexpen SUBQ SCH ×2 (06:13→11:30)
[2018-01-25 08:00] VITALS: BP 130/82
[2018-01-25 08:06] LABS: HEMATOCRIT 42.8 % (42.0-52.0); HEMOGLOBIN 14.1 G/DL (14.2-18.0); MEAN CORPUSCULAR VOLUME 93 FL (80-99); PLATELET COUNT 91 K/UL (150-450); RED BLOOD COUNT 4.59 M/UL (4.70-6.10); RED CELL DISTRIBUTION WIDTH 11.9 % (11.6-14.8); WHITE BLOOD COUNT 5.8 K/UL (4.8-10.8)
[2018-01-25] MEDS ORDERED: Gastrograffin 30ml ORAL PRN (08:45)
[2018-01-25] MEDS: Aspirin EC 81mg tab ORAL SCH (08:45)
[2018-01-25] MEDS: Docusate 100mg cap ORAL SCH (08:45)
[2018-01-25] MEDS: OLANZapine 2.5mg tab ORAL SCH (08:45)
[2018-01-25] MEDS: Heparin 5000 units/ml inj SUBQ SCH (08:45)
[2018-01-25] MEDS: Lisinopril 2.5mg tab ORAL SCH (08:46)
[2018-01-25] MEDS: Furosemide 40mg tab ORAL SCH (08:47)
[2018-01-25] MEDS: Spironolactone 25mg tab ORAL SCH (08:47)
--- NOTE | 2018-01-25 10:13 | GI Progress Note ---
Assessment/Plan Problems: (1) SBO (small bowel obstruction) ICD Codes: K56.609 - Unspecified intestinal obstruction, unspecified as to partial versus complete obstruction SNOMED: 306791772 (2) Generalized weakness ICD Codes: R53.1 - Weakness SNOMED: 43925176 (3) Elevated troponin ICD Codes: R74.8 - Abnormal levels of other serum enzymes SNOMED: 094310550, 528471266, 822520448 (4) Ileus ICD Codes: K56.7 - Ileus, unspecified SNOMED: 498604003 (5) Dementia ICD Codes: F03.90 - Unspecified dementia without behavioral disturbance SNOMED: 09440770 (6) LFTs abnormal ICD Codes: R94.5 - Abnormal results of liver function studies SNOMED: 149933100 Status: stable Status Narrative Discussed with Dr. Noriega. Assessment/Plan CT AP reviewed, see full report >> ileus vs early SBO possible gastroparesis 2/2 to DM normochromic normocytic anemia elevated AST >> avoid hepatotoxic medications anemia work up reviewed >> folate deficiency elevated troponin levels had BM this morning cancel SBFT, will adv diet IV/PO hydration + electrolyte correction DM management trend LFTs OB stool r/o GI bleed pending monitor H&H, prn transfusions ppi fu labs The patient was seen and examined at bedside and all new and available data was reviewed in the patients chart. I agree with the above findings, impression and plan. (Patient seen earlier today. Signature stamp does not reflect patient encounter time.). - Bart Noriega MD Subjective Gastrointestinal/Abdominal: Reports: no symptoms Subjective had BM this morning Objective Last 24 Hour Vital Signs Date Time Temp Pulse Resp B/P (MAP) Pulse Ox O2 Delivery O2 Flow Rate FiO2 01/25/18 08:46 82 130/74 01/25/18 08:46 130/74 01/25/18 08:00 97.5 70 18 130/82 96 Room Air 97.5 01/25/18 08:00 84 01/25/18 04:00 97.6 68 20 119/68 97 Room Air 97.6 01/25/18 03:46 64 01/25/18 00:00 98.2 68 20 120/65 97 Room Air 98.2 01/24/18 23:45 65 01/24/18 21:36 93 133/79 01/24/18 21:00 93 89 97 01/24/18 20:35 87 01/24/18 20:00 97.7 89 20 133/79 96 Room Air 97.7 01/24/18 16:00 74 01/24/18 16:00 96.8 66 20 120/66 98 Room Air 96.8 01/24/18 12:00 78 01/24/18 12:00 97.6 83 20 139/77 98 Room Air 97.6 Intake and Output 01/24/18 01/25/18 19:00 07:00 Intake Total 1250 ml Balance 1250 ml Intake Oral 1200 ml IV Total 50 ml # Voids 5 4 # Bowel Movements 1 1 Laboratory Tests Test 01/24/18 15:45 01/25/18 06:27 01/25/18 07:40 01/25/18 09:30 Troponin I 0.058 ng/mL (0.000-0.056) White Blood Count 5.8 K/UL (4.8-10.8) Red Blood Count 4.59 M/UL (4.70-6.10) L Hemoglobin 14.1 G/DL (14.2-18.0) L Hematocrit 42.8 % (42.0-52.0) Mean Corpuscular Volume 93 FL (80-99) Mean Corpuscular Hemoglobin 30.7 PG (27.0-31.0) Mean Corpuscular Hemoglobin Concent 33.0 G/DL (32.0-36.0) Red Cell Distribution Width 11.9 % (11.6-14.8) Platelet Count 91 K/UL (150-450) L Mean Platelet Volume 6.7 FL (6.5-10.1) Neutrophils (%) (Auto) % (45.0-75.0) Lymphocytes (%) (Auto) % (20.0-45.0) Monocytes (%) (Auto) % (1.0-10.0) Eosinophils (%) (Auto) % (0.0-3.0) Basophils (%) (Auto) % (0.0-2.0) Differential Total Cells Counted 100 Neutrophils % (Manual) 73 % (45-75) Lymphocytes % (Manual) 18 % (20-45) L Monocytes % (Manual) 6 % (1-10) Eosinophils % (Manual) 2 % (0-3) Basophils % (Manual) 0 % (0-2) Band Neutrophils 1 % (0-8) Platelet Estimate Decreased L Platelet Morphology Normal Hypochromasia 1+ Stool Occult Blood Pending Sodium Level Pending Potassium Level Pending Chloride Level Pending Carbon Dioxide Level Pending Blood Urea Nitrogen Pending Creatinine Pending Estimat Glomerular Filtration Rate Pending Glucose Level Pending Calcium Level Pending Total Creatine Kinase Pending Height (Feet): 5 Height (Inches): 7.00 Weight (Pounds): 160 General Appearance: WD/WN, no apparent distress, alert Cardiovascular: normal rate Respiratory/Chest: normal breath sounds, no respiratory distress Abdominal Exam: normal bowel sounds, non tender, soft Extremities: normal range of motion, non-tender Nicolle Delaney NP Jan 25, 2018 10:13
[2018-01-25 10:25] LABS: ANION GAP 9 mmol/L (5-15); BLOOD UREA NITROGEN 14 mg/dL (7-18); CALCIUM 8.4 MG/DL (8.5-10.1); CARBON DIOXIDE 26 MMOL/L (21-32); CHLORIDE 103 MMOL/L (98-107); CREATINE KINASE 138 U/L (26-308); CREATININE 1.1 MG/DL (0.55-1.30); SODIUM 138 MMOL/L (136-145)
[2018-01-25] MEDS: LORazepam 0.5mg tab ORAL PRN (10:36)
--- NOTE | 2018-01-25 11:44 | Cardiac Electrophysiology PN ---
Assessment/Plan Assessment/Plan 1. Elevated troponin, levels are flat, could be secondary to the patient's rhabdomyolysis. CK was more than 800. The patient does not have any chest pain. 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 2. Cardiomyopathy, EF of 30% to 35%. Consider ischemia evaluation to rule out CAD and ischemic cardiomyopathy if family agreed. Continue Coreg lisinopril,Lasix and Aldactone. 3. Urinary tract infection, on ceftriaxone. 4. Dementia. 5. Altered level of consciousness. 6. DNR and DNI DW RN DC tele. Subjective Subjective Comfortable in NAD. No CP or SOB. RN at bedside Objective Last 24 Hour Vital Signs Date Time Temp Pulse Resp B/P (MAP) Pulse Ox O2 Delivery O2 Flow Rate FiO2 01/25/18 09:00 69 76 84 01/25/18 08:46 82 130/74 01/25/18 08:46 130/74 01/25/18 08:00 97.5 70 18 130/82 96 Room Air 97.5 01/25/18 08:00 84 01/25/18 04:00 97.6 68 20 119/68 97 Room Air 97.6 01/25/18 03:46 64 01/25/18 00:00 98.2 68 20 120/65 97 Room Air 98.2 01/24/18 23:45 65 01/24/18 21:36 93 133/79 01/24/18 21:00 93 89 97 01/24/18 20:35 87 01/24/18 20:00 97.7 89 20 133/79 96 Room Air 97.7 01/24/18 16:00 74 01/24/18 16:00 96.8 66 20 120/66 98 Room Air 96.8 01/24/18 12:00 78 01/24/18 12:00 97.6 83 20 139/77 98 Room Air 97.6 Intake and Output 01/24/18 01/25/18 19:00 07:00 Intake Total 1250 ml Balance 1250 ml Intake Oral 1200 ml IV Total 50 ml # Voids 5 4 # Bowel Movements 1 1 Laboratory Tests Test 01/24/18 15:45 01/25/18 06:27 01/25/18 07:40 6/6/18 09:30 Troponin I 0.058 ng/mL (0.000-0.056) White Blood Count 5.8 K/UL (4.8-10.8) Red Blood Count 4.59 M/UL (4.70-6.10) L Hemoglobin 14.1 G/DL (14.2-18.0) L Hematocrit 42.8 % (42.0-52.0) Mean Corpuscular Volume 93 FL (80-99) Mean Corpuscular Hemoglobin 30.7 PG (27.0-31.0) Mean Corpuscular Hemoglobin Concent 33.0 G/DL (32.0-36.0) Red Cell Distribution Width 11.9 % (11.6-14.8) Platelet Count 91 K/UL (150-450) L Mean Platelet Volume 6.7 FL (6.5-10.1) Neutrophils (%) (Auto) % (45.0-75.0) Lymphocytes (%) (Auto) % (20.0-45.0) Monocytes (%) (Auto) % (1.0-10.0) Eosinophils (%) (Auto) % (0.0-3.0) Basophils (%) (Auto) % (0.0-2.0) Differential Total Cells Counted 100 Neutrophils % (Manual) 73 % (45-75) Lymphocytes % (Manual) 18 % (20-45) L Monocytes % (Manual) 6 % (1-10) Eosinophils % (Manual) 2 % (0-3) Basophils % (Manual) 0 % (0-2) Band Neutrophils 1 % (0-8) Platelet Estimate Decreased L Platelet Morphology Normal Hypochromasia 1+ Stool Occult Blood Pending Sodium Level 138 MMOL/L (136-145) Potassium Level 3.0 MMOL/L (3.5-5.1) L Chloride Level 103 MMOL/L (98-107) Carbon Dioxide Level 26 MMOL/L (21-32) Anion Gap 9 mmol/L (5-15) Blood Urea Nitrogen 14 mg/dL (7-18) Creatinine 1.1 MG/DL (0.55-1.30) Estimat Glomerular Filtration Rate mL/min (>60) Glucose Level 162 MG/DL (74-106) H Calcium Level 8.4 MG/DL (8.5-10.1) L Total Creatine Kinase 138 U/L (26-308) Microbiology Date/Time Source Procedure Growth Status 01/22/18 13:33 Nasal Nares MRSA Culture - Final NO METHICILLIN RESISTANT STAPH AUREUS... Complete 01/22/18 13:33 Rectum VRE Culture - Final Enterococcus Faecalis - Vre Complete Objective HEAD AND NECK: Shows no JVD. LUNGS: Coarse rhonchi. CARDIOVASCULAR: Regular S1 and S2 with no gallop or murmur. ABDOMEN: Soft. EXTREMITIES: No pitting edema. David Rosario MD Jan 25, 2018 11:44
[2018-01-25] MEDS: cefTRIAXone 1 GM in D5W 110 ML IVPB SCH (11:53)
[2018-01-25 12:00] VITALS: BP 137/78
--- NOTE | 2018-01-25 12:17 | General Surgery Progress Note ---
General Surgery-Progress Note Subjective Symptoms: improved, tolerating diet, passing flatus, BM Additional Comments no acute events. doing well. tolerating diet. +BM's. Objective Last 24 Hour Vital Signs Date Time Temp Pulse Resp B/P (MAP) Pulse Ox O2 Delivery O2 Flow Rate FiO2 01/25/18 09:00 69 76 84 01/25/18 08:46 82 130/74 01/25/18 08:46 130/74 01/25/18 08:00 97.5 70 18 130/82 96 Room Air 97.5 01/25/18 08:00 84 01/25/18 04:00 97.6 68 20 119/68 97 Room Air 97.6 01/25/18 03:46 64 01/25/18 00:00 98.2 68 20 120/65 97 Room Air 98.2 01/24/18 23:45 65 01/24/18 21:36 93 133/79 01/24/18 21:00 93 89 97 01/24/18 20:35 87 01/24/18 20:00 97.7 89 20 133/79 96 Room Air 97.7 01/24/18 16:00 74 01/24/18 16:00 96.8 66 20 120/66 98 Room Air 96.8 I&O Intake and Output 01/24/18 01/25/18 19:00 07:00 Intake Total 1250 ml Balance 1250 ml Intake Oral 1200 ml IV Total 50 ml # Voids 5 4 # Bowel Movements 1 1 Drains: none Cardiovascular: RSR Respiratory: clear Abdomen: soft, flat, non-tender, present bowel sounds Extremities: no edema Laboratory Tests Test 01/24/18 15:45 01/25/18 06:27 01/25/18 07:40 01/25/18 09:30 Troponin I 0.058 ng/mL (0.000-0.056) White Blood Count 5.8 K/UL (4.8-10.8) Red Blood Count 4.59 M/UL (4.70-6.10) L Hemoglobin 14.1 G/DL (14.2-18.0) L Hematocrit 42.8 % (42.0-52.0) Mean Corpuscular Volume 93 FL (80-99) Mean Corpuscular Hemoglobin 30.7 PG (27.0-31.0) Mean Corpuscular Hemoglobin Concent 33.0 G/DL (32.0-36.0) Red Cell Distribution Width 11.9 % (11.6-14.8) Platelet Count 91 K/UL (150-450) L Mean Platelet Volume 6.7 FL (6.5-10.1) Neutrophils (%) (Auto) % (45.0-75.0) Lymphocytes (%) (Auto) % (20.0-45.0) Monocytes (%) (Auto) % (1.0-10.0) Eosinophils (%) (Auto) % (0.0-3.0) Basophils (%) (Auto) % (0.0-2.0) Differential Total Cells Counted 100 Neutrophils % (Manual) 73 % (45-75) Lymphocytes % (Manual) 18 % (20-45) L Monocytes % (Manual) 6 % (1-10) Eosinophils % (Manual) 2 % (0-3) Basophils % (Manual) 0 % (0-2) Band Neutrophils 1 % (0-8) Platelet Estimate Decreased L Platelet Morphology Normal Hypochromasia 1+ Stool Occult Blood Pending Sodium Level 138 MMOL/L (136-145) Potassium Level 3.0 MMOL/L (3.5-5.1) L Chloride Level 103 MMOL/L (98-107) Carbon Dioxide Level 26 MMOL/L (21-32) Anion Gap 9 mmol/L (5-15) Blood Urea Nitrogen 14 mg/dL (7-18) Creatinine 1.1 MG/DL (0.55-1.30) Estimat Glomerular Filtration Rate mL/min (>60) Glucose Level 162 MG/DL (74-106) H Calcium Level 8.4 MG/DL (8.5-10.1) L Total Creatine Kinase 138 U/L (26-308) Plan Problems: (1) Ileus Assessment & Plan: 82M with likely ileus or slow transit bowel. unlikely obstruction. HD stable, labs okay, exam benign. radiological studies reviewed and not specific obstruction noted and likely just ileus. -okay for diet from surgical standpoint. patient needs to be up and if possible in chair when tolerating diet. -Advance diet as tolerated -bowel regimen thank you for this consult. will follow with you. Mark Corona Jan 25, 2018 12:17
--- NOTE | 2018-01-25 12:37 | General Progress Note ---
Assessment/Plan Status: stable Assessment/Plan dementia anxiety d/o encephalopathy -Ativan prn -zyprexa 2.5mg bid Subjective Date patient seen: Jan 25, 2018 Neurologic/Psychiatric: Reports: anxiety Allergies: Coded Allergies: No Known Allergies (Unverified , 01/22/18) Subjective the pt is less confused however he is disorganized and half naked. anxious and trying to come out of bed Objective Last 24 Hour Vital Signs Date Time Temp Pulse Resp B/P (MAP) Pulse Ox O2 Delivery O2 Flow Rate FiO2 01/25/18 09:00 69 76 84 01/25/18 08:46 82 130/74 01/25/18 08:46 130/74 01/25/18 08:00 97.5 70 18 130/82 96 Room Air 97.5 01/25/18 08:00 84 01/25/18 04:00 97.6 68 20 119/68 97 Room Air 97.6 01/25/18 03:46 64 01/25/18 00:00 98.2 68 20 120/65 97 Room Air 98.2 01/24/18 23:45 65 01/24/18 21:36 93 133/79 01/24/18 21:00 93 89 97 01/24/18 20:35 87 01/24/18 20:00 97.7 89 20 133/79 96 Room Air 97.7 01/24/18 16:00 74 01/24/18 16:00 96.8 66 20 120/66 98 Room Air 96.8 Intake and Output 01/24/18 01/25/18 19:00 07:00 Intake Total 1250 ml Balance 1250 ml Intake Oral 1200 ml IV Total 50 ml # Voids 5 4 # Bowel Movements 1 1 Laboratory Tests 01/24/18 15:45: Troponin I 0.058H 01/25/18 06:27: White Blood Count 5.8, Red Blood Count 4.59L, Hemoglobin 14.1L, Hematocrit 42.8 , Mean Corpuscular Volume 93, Mean Corpuscular Hemoglobin 30.7, Mean Corpuscular Hemoglobin Concent 33.0, Red Cell Distribution Width 11.9, Platelet Count 91L, Mean Platelet Volume 6.7, Neutrophils (%) (Auto) , Lymphocytes (%) ( Auto) , Monocytes (%) (Auto) , Eosinophils (%) (Auto) , Basophils (%) (Auto) , Differential Total Cells Counted 100, Neutrophils % (Manual) 73, Lymphocytes % ( Manual) 18L, Monocytes % (Manual) 6, Eosinophils % (Manual) 2, Basophils % ( Manual) 0, Band Neutrophils 1, Platelet Estimate DecreasedL, Platelet Morphology Normal, Hypochromasia 1+ 01/25/18 07:40: Stool Occult Blood [Pending] 01/25/18 09:30: Sodium Level 138, Potassium Level 3.0L, Chloride Level 103, Carbon Dioxide Level 26, Anion Gap 9, Blood Urea Nitrogen 14, Creatinine 1.1, Estimat Glomerular Filtration Rate , Glucose Level 162H, Calcium Level 8.4L, Total Creatine Kinase 138 Height (Feet): 5 Height (Inches): 7.00 Weight (Pounds): 160 General Appearance: no apparent distress, alert, agitated Neurologic: oriented x 3, responsive, depressed affect Jensen Silva M.D. Jan 25, 2018 12:37
[2018-01-25] MEDS ORDERED: FUROSEMIDE40 MG ORAL (13:21)
[2018-01-25] MEDS ORDERED: ASPIRIN EC81 MG ORAL (13:21)
[2018-01-25] MEDS ORDERED: FOLIC ACID1 MG ORAL (13:21)
[2018-01-25] MEDS ORDERED: VITAMIN B125000 MCG PO (13:21)
[2018-01-25] MEDS ORDERED: MOM30 ML ORAL (13:21)
[2018-01-25] MEDS ORDERED: COLACE100 MG ORAL (13:21)
[2018-01-25] MEDS ORDERED: ALDACTONE25 MG ORAL (13:21)
[2018-01-25] MEDS ORDERED: CIPROFLOXACIN500 M2 ORAL (13:21)
[2018-01-25] MEDS ORDERED: LISINOPRIL5 MG ORAL (13:21)
[2018-01-25] MEDS ORDERED: COREG3.125 MG ORAL (13:21)
[2018-01-25 13:22] VITALS: BP 137/78
--- NOTE | 2018-01-25 13:36 | Discharge Summary ---
Discharge Summary Hospital Course Date of Admission Jan 22, 2018 at 12:05 Date of Discharge 01/25/18 Admitting Diagnosis syncopal episode HPI Gibran Elkins is a 82 year old male who was admitted on Jan 22, 2018 at 12:05 for Syncopal Episode 82 y/o male with dementia, urinary/bowel incontinence presented to the ED for syncope and AMS. Patient is a difficult historian and further history was obtained from chart/family. Patient had a syncopal episode 1 day prior to arrival and today presented with altered mental status. CT brain was done, which was unremarkable for acute pathology but did show prominence of ventricles. Patient was also noted to have a UTI and was started on rocephin. Patient had been complaining of abdominal/back pain and CT a/p was done, which was significant for some fluid distended proximal small bowel loops measuring up to 3.5 cm diameter, query ileus versus low-grade SBO. Difficult to clearly identify transition. 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 Enlarged prostate. At this time, patient denies any abdominal pain, n/v. Is unable to tell when he last had a bowel movement. Reports generalized weakness and gait instability that started within the last day. Reports urinary and bowel incontinence but unable to report when this started. Patient's CK was slightly elevated but denies any muscle pain. Troponin was also slightly elevated. EKG shows sinus rhythm with 1st degree AV block, with no acute ST or T wave changes. Denies cp, sob, f/c. Consultations Cardiology, Dr. Rosario GI, Dr. Noriega General surgery, Dr. Corona Neurology, Dr. Petty Procedures None Hospital Course Patient was admitted for syncope and fall. Patient was noted to have a UTI and was started on IV ceftriaxone. Urine culture grew pseudomonas aeroginosa and it was sensitive to cipro. Patient was therefore switched over to ciprofloxacin. Patient was also noted to have ileus versus early/partial SBO. GI and general surgery was consulted. Small bowel series was ordered but patient refused contrast. Serial KUBs were done, which consistently showed ileus vs. SBO. Patient was given bowel medications and patient had a large bowel movement. Patient was therefore cleared per general surgery and GI with no further interventions. Syncopal workup was also done with ECHO showing 30-35% EF with no wall motion abnormality. Orthostatics were also positive. Cardiology was consulted and patient was started on lasix, lisinopril, spirinolactone, and coreg. Troponin leak was also noted, which was downtrending. This was attributed to elevated CK as patient did not have any chest pain or acute EKG changes with ST/T wave abnormalities. EKG did show RBBB. tool maintenance worker was able to contact family and per family, patient was DNR/DNI as signed on the POLST. Therefore, no further interventions were done per cardiology and patient was cleared for discharge per cardiology as family refused any cardiac interventions. Patient was also noted to have prominent ventricles and neurology was consulted to r/o NPH. Per neurology, there was no evidence of NPH and further workup was done to r/o acute metabolic encephalopathy. Patient was noted to be deficient in vitamin B12 and folate and therefore patient was started on supplementation. Patient was also evaluated by PT who recommended home health as refused SNF. Patient was therefore discharged to home with hospice and home health services with PT/OT/RN. Patient was discharged with prescriptions and advised to follow up with PMD and elevator erector helper within 1 week. Discharge Medications New Medications: Cyanocobalamin (Vitamin B-12) (Vitamin B12) 5,000 Mcg Tab.rapdis 5000 MCG PO DAILY for 30 Days, #30 TAB Aspirin Ec* (Aspirin Ec*) 81 Mg Tablet.dr 81 MG ORAL DAILY for 30 Days, #30 TAB Carvedilol (Coreg) 3.125 Mg Tablet 3.125 MG ORAL EVERY 12 HOURS for 30 Days, #60 TAB Ciprofloxacin Hcl* (Ciprofloxacin Hcl*) 500 Mg Tablet 500 MG ORAL EVERY 12 HOURS for 5 Days, #10 TAB Docusate Sodium* (Colace*) 100 Mg Capsule 100 MG ORAL EVERY 12 HOURS for 30 Days, #60 CAP Folic Acid* (Folic Acid*) 1 Mg Tablet 1 MG ORAL DAILY for 30 Days, #30 TAB Furosemide* (Lasix*) 40 Mg Tablet 40 MG ORAL DAILY for 30 Days, #30 TAB Lisinopril (Lisinopril*) 5 Mg Tablet 2.5 MG ORAL DAILY for 30 Days, #30 TAB Magnesium Hydroxide (Milk of Magnesia) 400 Mg/5 Ml Oral.susp 30 ML ORAL HSPRN PRN for 30 Days, #120 ML Spironolactone (Aldactone) 25 Mg Tablet 25 MG ORAL DAILY for 30 Days, #30 TAB Discharge Condition Upon Discharge: improving, stable Discharge Disposition Patient was discharged to home with hospice and home health with PT/OT/RN. Discharge Diagnoses: (1) Dementia (2) Ileus (3) Syncope (4) UTI (urinary tract infection) (5) Elevated troponin (6) Rhabdomyolysis (7) Generalized weakness (8) LFTs abnormal Ana Maria Man NP Jan 25, 2018 13:36
[2018-01-25] MEDS ORDERED: NS 500ML ONE (17:00)
[2018-01-25] MEDS ORDERED: Ciprofloxacin 500mg tab ORAL SCH (21:00)
== END 2018-01-25 17:01 | disposition hospice, home (50) | DRG 689 ==
LOC: EDBD 10:34 → EDBEDREQ 11:45 → EMR 12:00 → 2E 12:05 → EDBEDREQ 12:14
DX: N39.0 Urinary tract infection, site not specified (principal); G93.40 Encephalopathy, unspecified; K56.609 Unspecified intestinal obstruction, unspecified as to partial versus complete obstruction; M62.82 Rhabdomyolysis; I42.9 Cardiomyopathy, unspecified; R55 Syncope and collapse; Z66 Do not resuscitate; R15.9 Full incontinence of feces; R32 Unspecified urinary incontinence; F41.9 Anxiety disorder, unspecified; I44.0 Atrioventricular block, first degree; E11.9 Type 2 diabetes mellitus without complications; B96.5 Pseudomonas (aeruginosa) (mallei) (pseudomallei) as the cause of diseases classified elsewhere; I10 Essential (primary) hypertension; E53.8 Deficiency of other specified B group vitamins; R79.89 Other specified abnormal findings of blood chemistry
CPT/HCPCS: 36415; 70450; 71045; 74018; 74176; 80048; 80053; 80061; 81003; 82140; 82248; 82270; 82306; 82550; 82553; 82607; 82728; 82746; 82962; 83036; 83540; 83550; 83605; 83690; 83735; 84100; 84439; 84443; 84481; 84484; 85007; 85025; 85044; 85610; 85651; 85730; 86592; 86850; 86900; 86901; 87040; 87081; 87086; 87181; 93005; 93306; 99285; J1815; J8499

== ENCOUNTER 2018-03-12 06:40 | Emergency (ER) | payer MEDICARE, OTHER ==
[~2018-03-12] VITALS: Ht 167.6 cm; Wt 63.5 kg
[~2018-03-12 06:40] MED LIST: ALDACTONE25 MG ORAL; ASPIRIN EC81 MG ORAL; CIPROFLOXACIN500 M2 ORAL; COLACE100 MG ORAL; COREG3.125 MG ORAL; FOLIC ACID1 MG ORAL; FUROSEMIDE40 MG ORAL; IBUPROFEN600 MG ORAL; LISINOPRIL5 MG ORAL; METFORMIN HCL500 M1 ORAL; MOM30 ML ORAL; UNOBMED; VITAMIN B125000 MCG PO
[2018-03-12] MEDS ORDERED: Lidocaine 1% 10mg/ml/Epi 0.005mg/ml 30ml vial INJ ONE (06:45)
[2018-03-12] MEDS ORDERED: Tetanus/Diptheria/Pertussis Vaccine 0.5ml Syr IM ONE (06:45)
--- NOTE | 2018-03-12 07:04 | Emergency Room Report ---
History of Present Illness General Chief Complaint: Multiple Trauma/Fall Source: Family Member, EMS Present Illness HPI Patient is a 83-year-old male presented after witnessed fall. The patient had been ambulatory with a walker he fell from standing position onto his left sided struck his head on the floor. The patient prior history of dementia. He denies any neck pain he reports having pain to the left side of his head. He does not take any anticoagulation. The patient had no loss of consciousness. He had been able to ambulate after the fall. The injury occurred approximately 1 hour prior to arrival. Allergies: Coded Allergies: No Known Allergies (Unverified , 01/22/18) Patient History Past Medical History: dementia Reviewed Nursing Documentation: PMH: Agreed; PSxH: Agreed Nursing Documentation-PMH Hx Cardiac Problems: Yes - HTN Hx Hypertension: Yes Hx Diabetes: Yes Hx Cancer: No Hx Gastrointestinal Problems: No History Of Psychiatric Problem: Yes - Alzheimers, Dementia Hx Neurological Problems: No Review of Systems All Other Systems: negative except mentioned in HPI Physical Exam Vital Signs Date Time Temp Pulse Resp B/P (MAP) Pulse Ox O2 Delivery O2 Flow Rate FiO2 03/12/18 06:34 98.7 72 18 127/73 96 Room Air 98.8 Sp02 EP Interpretation: reviewed, normal General Appearance: normal inspection, alert, no apparent distress, other - gcs 14 Head: other - scalp laceration 2cm linear left parietal Eyes: normal eye exam, PERRL, EOMI, lids + conjunctiva normal, no hyphema, no racoon eyes ENT: normal ENT inspection, TMs + canals normal, oropharynx normal, no mccoy signs Neck: trach midline, no bony tend, full range of motion without pain Respiratory: effort normal, no retractions, clear to auscultation, chest symmetrical, palpation of chest normal, speaking in full sentences Cardiovascular: regular rate, rhythm, no JVD Cardiovascular #2: 2+ radial (R), 2+ radial (L), 2+ dorsalis pedis (R), 2+ dorsalis pedis (L) Gastrointestinal: normal inspection, non-tender, non-distended, no rebound/ guarding, normal bowel sounds Genitourinary: normal inspection Musculoskeletal: normal ROM, non-tender, back normal Skin: no rash, no lacerations, normal palpation Lymphatic: normal inspection Neurologic: normal inspection, CN II-XII intact, sensory intact, motor strength /tone normal, normal speech Psychiatric: normal inspection, mood normal Procedures Laceration/Wound Repair Laceration/Wound Repair : Consent: Emergent Wound Location: head Wound's Depth, Shape: superficial Wound Length (cm): 2 Irrigated w/ Saline (ccs): 20 Anesthesia: Lidocaine w/ Epi Volume Anesthetic (ccs): 4 Wound Repaired With: sutures Suture Size/Type: 4:0 Number of Sutures: 3 Layer Closure?: No Patient Tolerated: Well Complications: None Medical Decision Making Diagnostic Impression: Primary Impression: Dementia Additional Impression: Laceration of head ER Course Patient presented for head injury after a fall. Differential diagnosis included was not limited to neck fracture, CVA, close head injury, syncopal episode, basilar ischemia. The CT the head was ordered due to patient's recent fall and advanced age. Tetanus vaccine was updated. The laceration was irrigated and sutured with absorbable suture.CT head read by radiology showed atrophic changes without evident fracture or intracranial hemorrhage, left side soft tissue swelling. The patient is advised to follow up with primary care doctor in 2-3 days for wound check. The patient's after care instructions were provided by Greenlandic speaking nurse. All questions are answered. Patient is advised to return if any worsening condition or if any changes in status that are concerning. This report is dictated with [employer] phlebotomy manager software which may occasionally lead to discrepancies related to use of this software. Last Vital Signs Date Time Temp Pulse Resp B/P (MAP) Pulse Ox O2 Delivery O2 Flow Rate FiO2 03/12/18 06:34 98.7 72 18 127/73 96 Room Air 98.8 Status: improved Disposition: HOME, SELF-CARE Condition: Stable Referrals: NON PHYSICIAN (PCP) Brian Durand MD Mar 12, 2018 07:04
[2018-03-12 07:06] VITALS: BP 127/73
[2018-03-12] MEDS ORDERED: Bacitracin Oint UD TOPIC ONE (08:21)
--- NOTE | 2018-03-12 08:22 | Diagnostic Imaging Report ---
EXAM: CT Head Without Intravenous Contrast CLINICAL HISTORY: 83-year-old male with pain status post fall. TECHNIQUE: Axial computed tomography images of the head/brain without intravenous contrast. Coronal reformatted images were created and reviewed. CTDI is 70.53 mGy and DLP is 1460 mGy-cm. One or more of the following dose reduction techniques were used: automated exposure control, adjustment of the mA and/or kV according to patient size, use of iterative reconstruction technique. COMPARISON: 01/22/2018. FINDINGS: Brain: No acute intracranial hemorrhage. Mild atrophy and probable chronic small vessel ischemia, as before. Small chronic right caudate lacunar infarction, as before. Ventricles: Unremarkable and stable. Bones/joints: No acute abnormality. Soft tissues: New left posterolateral parietal scalp probable hematoma. Sinuses: Unremarkable as visualized. Mastoid air cells: Unremarkable as visualized. IMPRESSION: No acute intracranial hemorrhage or skull fracture; no significant interval change, apart from new left scalp probable hematoma.
[2018-03-12 08:28] VITALS: BP 131/78
[2018-03-12 08:33] VITALS: BP 131/78
== END 2018-03-12 08:48 | disposition home or self-care (01) ==
LOC: EDBD 06:40 → EMR 06:45
DX: S01.01XA Laceration without foreign body of scalp, initial encounter (principal); W19.XXXA Unspecified fall, initial encounter; Y92.9 Unspecified place or not applicable; Z23 Encounter for immunization; F03.90 Unspecified dementia, unspecified severity, without behavioral disturbance, psychotic disturbance, mood disturbance, and anxiety; I10 Essential (primary) hypertension; E11.9 Type 2 diabetes mellitus without complications
CPT/HCPCS: 70450; 90471; 90715; 99283; 99284